=== PATIENT | female | born 1945 | race Caucasian/White ===

== ENCOUNTER → 2017-11-30 | Outpatient (CLI) | payer MEDICARE ==
[~2017-11-30] MED LIST: (None)20 M1 PO; ABILIFY PO; ADVAIR DISKU AER 250 INH; ALBIPROI INH; ALBU.083IS IH; ALBU3IS INH; ALBU90OI6 INH; ALBUTEROL; ASCO500 PO; ASPI325 PO; ASPI81CH PO; ATOR40TA PO; AZIT250 PO; AZIT500 PO; Abilify5 MG PO; BUPR150T2 PO; Budeprion Xl300 MG PO; CEFD300 PO; CHOL10002 PO; CLIN300 PO; CLON.5 PO; CLOP75 PO; CLOTRIMAZOLE MM; COMBIVENT INH; COMBIVENT RESPIM4 GM; COMBIVENT RESPIM4 GM IH; COMBIVENT RESPIM4 GM INH; Cleocin HCl150 MG PO; Cyclobenzaprine5 MG PO; DOXY100 PO; DULERA 200 MCG/13 GM INH; DULO30 PO; DULO60 PO; FLUOROURACIL TOP; FLUSAL2505 IH; FURO20 PO; Ferrous Sulfat325 MG PO; GABA100 PO; GUAI600T33 PO; HYDACE5 PO; HYDR1TAB94 PO; IPRATROPIUM; LEVO750 PO; LISI5 PO; LISINOPRIL PO; LOVA20 PO; LOVA40 PO; Lisinopril2.5 MG PO; Lopressor 25 mg25 MG PO; METO50 PO; METPRE4DP PO; MIRALAX17 GM PO; MONT10T PO; MULTI VITAMIN1 EACH PO; MUPI1NAS; MUPIROCIN TOP; Micro-K10 MEQ PO; NICO21TP TOP; Omega 3 Fish O1 EACH PO; PANT40 PO; POTCHL20ER PO; PRED10 PO; PRED20 PO; PROAIR RESPICL90 MCG INH; PROBIOTIC ACID1 EAC3 PO; SIMV10 PO; SULTRIDS PO; TRELEGY ELLIPT1 EACH INH; TRIA80TC TOP; TRIAMCINOLONE TOP; VANC125 PO; Ventolin Soln3 ML INH; Vibramycin100 MG PO; ZYRTEC10 M2 PO; Zofran Odt4 MG SL; [UNRECOGNIZED DRUG - OTHER] PO
== END ==
LOC: PLD 10:16 → LAB SHORT 10:16
DX: D22.62 Melanocytic nevi of left upper limb, including shoulder (principal); D22.5 Melanocytic nevi of trunk
CPT/HCPCS: 88305

== ENCOUNTER → 2018-04-04 | Outpatient (CLI) | payer MEDICARE ==
[~2018-04-04] MED LIST changes: -(None)20 M1 PO; +ALBU3IS; -ALBU3IS INH; -ASCO500 PO; -ATOR40TA PO; -CEFD300 PO; -COMBIVENT RESPIM4 GM; -COMBIVENT RESPIM4 GM INH; -Cyclobenzaprine5 MG PO; -Ferrous Sulfat325 MG PO; -GUAI600T33 PO; -LOVA40 PO; -Lopressor 25 mg25 MG PO; +Lovastatin20 MG PO; -MIRALAX17 GM PO; -NICO21TP TOP; -PANT40 PO; -PROAIR RESPICL90 MCG INH; -PROBIOTIC ACID1 EAC3 PO; +TRELEGY ELLIPT1 EACH IH; -TRELEGY ELLIPT1 EACH INH
== END | disposition home or self-care (01) ==
LOC: LAB SHORT 13:33 → PLD 13:33
DX: D48.5 Neoplasm of uncertain behavior of skin (principal)
CPT/HCPCS: 88305

== ENCOUNTER 2018-04-12 15:13 | Emergency (ER) | payer MEDICARE ==
[~2018-04-12] VITALS: Ht 167.6 cm; Wt 64.0 kg
[~2018-04-12 15:13] MED LIST changes: -TRELEGY ELLIPT1 EACH IH
[2018-04-12] MEDS ORDERED: TRELEGY ELLIPT1 EACH IH (15:29)
[2018-04-12 15:44] LABS: BASOPHILS ABSOLUTE AUTO 0.02 K/mm3 (0.00-0.23); BASOPHILS PERCENT AUTO 0 % (0-2); EOSINOPHILS ABSOLUTE AUTO 0.13 K/mm3 (0.00-0.68); EOSINOPHILS PERCENT AUTO 2 % (0-6); Hematocrit 32.9 % (33.0-51.0); Hemoglobin 9.9 g/dL (11.5-16.0); IMMATURE GRAN ABSOLUTE AUTO 0.03 K/mm3 (0.00-0.10); IMMATURE GRAN PERCENT AUTO 0 % (0-1); LYMPHOCYTES ABSOLUTE AUTO 0.83 K/mm3 (0.84-5.20); LYMPHOCYTES PERCENT AUTO 9 % (21-46); MONOCYTES ABSOLUTE AUTO 0.69 K/mm3 (0.16-1.47); MONOCYTES PERCENT AUTO 8 % (4-13); Mean Corpuscular HGB 29.3 pg (26.0-34.0); Mean Corpuscular HGB Conc 30.1 g/dL (31.5-36.5); Mean Corpuscular Volume 97 fL (80-100); Mean Platelet Volume 9.2 fL (9.1-12.4); NEUTROPHILS ABSOLUTE AUTO 7.11 K/mm3 (1.96-9.15); NEUTROPHILS PERCENT AUTO 81 % (41-73); Platelet Count 207 K/mm3 (150-400); RDW Coefficient Variation 15.1 % (11.7-14.2); RDW Standard Deviation 54.1 fL (35.1-46.3); Red Blood Cell Count 3.38 M/mm3 (3.80-5.20); White Blood Cell Count 8.81 K/mm3 (4.00-11.30)
[2018-04-12 15:58] LABS: Alanine Aminotransfer (ALT/SGP 14 U/L (12-78); Albumin, Blood 2.7 g/dL (3.4-5.0); Albumin/Globulin Ratio 0.7 (0.8-1.8); Alk Phos 87 U/L (50-136); Anion Gap 4 mmol/L (6-16); Aspartate Aminotrans (AST/SGOT 17 U/L (12-37); Bilirubin, Total 0.2 mg/dL (0.1-1.0); Blood Urea Nitrogen 18 mg/dL (8-24); CO2, Blood 35 mmol/L (21-32); Calcium, Blood 8.7 mg/dL (8.5-10.1); Chloride, Blood 99 mmol/L (98-108); Creatinine, Blood 0.69 mg/dL (0.40-1.00); Globulin, Blood 3.9 g/dL (2.2-4.0); Glomerular Filtration Rate >60 (60-); Glucose, Blood 90 mg/dL (70-99); Potassium, Blood 4.4 mmol/L (3.5-5.5); Sodium, Blood 138 mmol/L (136-145); Total Protein, Blood 6.6 g/dL (6.4-8.2); Troponin I <0.015 ng/mL (0.000-0.040)
== END 2018-04-12 19:48 | disposition home or self-care (01) ==
LOC: ER 15:13
PROVIDERS: Internal Medicine
DX: R07.89 Other chest pain (principal); Z88.0 Allergy status to penicillin; Z79.899 Other long term (current) drug therapy; Z79.2 Long term (current) use of antibiotics; Z79.82 Long term (current) use of aspirin; J44.9 Chronic obstructive pulmonary disease, unspecified; E78.5 Hyperlipidemia, unspecified; I10 Essential (primary) hypertension; Z87.891 Personal history of nicotine dependence
CPT/HCPCS: 36415; 71046; 80053; 83880; 84484; 85025; 85379; 93005; 93010; 99283

== ENCOUNTER 2018-04-21 14:35 | Inpatient (IN) | payer MEDICARE ==
[~2018-04-21] VITALS: Ht 165.1 cm; Wt 69.0 kg
[~2018-04-21 14:35] MED LIST changes: -ALBU3IS; +ALBU3IS INH; +TRELEGY ELLIPT1 EACH INH
[2018-04-21 15:11] LABS: BASOPHILS ABSOLUTE AUTO 0.01 K/mm3 (0.00-0.23); BASOPHILS PERCENT AUTO 0 % (0-2); EOSINOPHILS ABSOLUTE AUTO 0.12 K/mm3 (0.00-0.68); EOSINOPHILS PERCENT AUTO 1 % (0-6); Hematocrit 33.1 % (33.0-51.0); Hemoglobin 9.7 g/dL (11.5-16.0); IMMATURE GRAN ABSOLUTE AUTO 0.06 K/mm3 (0.00-0.10); IMMATURE GRAN PERCENT AUTO 1 % (0-1); LYMPHOCYTES ABSOLUTE AUTO 0.88 K/mm3 (0.84-5.20); LYMPHOCYTES PERCENT AUTO 10 % (21-46); MONOCYTES ABSOLUTE AUTO 0.62 K/mm3 (0.16-1.47); MONOCYTES PERCENT AUTO 7 % (4-13); Mean Corpuscular HGB 28.6 pg (26.0-34.0); Mean Corpuscular HGB Conc 29.3 g/dL (31.5-36.5); Mean Corpuscular Volume 98 fL (80-100); Mean Platelet Volume 9.4 fL (9.1-12.4); NEUTROPHILS ABSOLUTE AUTO 7.04 K/mm3 (1.96-9.15); NEUTROPHILS PERCENT AUTO 81 % (41-73); Platelet Count 256 K/mm3 (150-400); RDW Coefficient Variation 14.8 % (11.7-14.2); RDW Standard Deviation 53.1 fL (35.1-46.3); Red Blood Cell Count 3.39 M/mm3 (3.80-5.20); White Blood Cell Count 8.73 K/mm3 (4.00-11.30)
[2018-04-21 15:14] LABS: PCO2 Arterial 79.9 mmHg (35-45); PO2 Arterial 58.5 mmHg (80-100); pH Blood Arterial 7.29 (7.35-7.45)
[2018-04-21 15:34] LABS: Alanine Aminotransfer (ALT/SGP 15 U/L (12-78); Albumin/Globulin Ratio 0.8 (0.8-1.8); Alk Phos 94 U/L (50-136); Anion Gap 3 mmol/L (6-16); Aspartate Aminotrans (AST/SGOT 19 U/L (12-37); Bilirubin, Total 0.2 mg/dL (0.1-1.0); Blood Urea Nitrogen 14 mg/dL (8-24); Bun/Creatinine Ratio 20.4 (12.0-20.0); CO2, Blood 37 mmol/L (21-32); Calcium, Blood 8.5 mg/dL (8.5-10.1); Chloride, Blood 95 mmol/L (98-108); Creatinine, Blood 0.69 mg/dL (0.40-1.00); Glomerular Filtration Rate >60 (60-); Glucose, Blood 89 mg/dL (70-99); Potassium, Blood 4.5 mmol/L (3.5-5.5); Sodium, Blood 135 mmol/L (136-145); Troponin I <0.015 ng/mL (0.000-0.040)
[2018-04-21 22:24] LABS: PCO2 Arterial 86.3 mmHg (35-45); PO2 Arterial 85.9 mmHg (80-100)
[2018-04-22 03:47] LABS: Hematocrit 31.6 % (33.0-51.0); Hemoglobin 9.3 g/dL (11.5-16.0); Mean Corpuscular HGB 27.8 pg (26.0-34.0); Mean Corpuscular HGB Conc 29.4 g/dL (31.5-36.5); Mean Platelet Volume 9.5 fL (9.1-12.4); Platelet Count 245 K/mm3 (150-400); RDW Coefficient Variation 14.9 % (11.7-14.2); RDW Standard Deviation 51.8 fL (35.1-46.3); Red Blood Cell Count 3.34 M/mm3 (3.80-5.20); White Blood Cell Count 5.57 K/mm3 (4.00-11.30)
[2018-04-22 03:56] LABS: Mean Corpuscular Volume 95 fL (80-100)
[2018-04-22 04:07] LABS: Anion Gap 4 mmol/L (6-16); Blood Urea Nitrogen 16 mg/dL (8-24); Bun/Creatinine Ratio 25.2 (12.0-20.0); CO2, Blood 39 mmol/L (21-32); Calcium, Blood 8.6 mg/dL (8.5-10.1); Chloride, Blood 95 mmol/L (98-108); Creatinine, Blood 0.63 mg/dL (0.40-1.00); Glomerular Filtration Rate >60 (60-); Glucose, Blood 182 mg/dL (70-99); Potassium, Blood 4.3 mmol/L (3.5-5.5); Sodium, Blood 138 mmol/L (136-145)
[2018-04-22 05:10] LABS: PO2 Arterial 61.9 mmHg (80-100); pH Blood Arterial 7.35 (7.35-7.45)
[2018-04-23 03:54] LABS: BASOPHILS ABSOLUTE AUTO 0.01 K/mm3 (0.00-0.23); BASOPHILS PERCENT AUTO 0 % (0-2); EOSINOPHILS PERCENT AUTO 0 % (0-6); Hematocrit 32.6 % (33.0-51.0); Hemoglobin 9.9 g/dL (11.5-16.0); IMMATURE GRAN ABSOLUTE AUTO 0.05 K/mm3 (0.00-0.10); IMMATURE GRAN PERCENT AUTO 0 % (0-1); LYMPHOCYTES ABSOLUTE AUTO 0.36 K/mm3 (0.84-5.20); LYMPHOCYTES PERCENT AUTO 3 % (21-46); MONOCYTES ABSOLUTE AUTO 0.24 K/mm3 (0.16-1.47); MONOCYTES PERCENT AUTO 2 % (4-13); Mean Corpuscular HGB 28.1 pg (26.0-34.0); Mean Corpuscular HGB Conc 30.4 g/dL (31.5-36.5); Mean Corpuscular Volume 93 fL (80-100); Mean Platelet Volume 9.7 fL (9.1-12.4); NEUTROPHILS ABSOLUTE AUTO 13.39 K/mm3 (1.96-9.15); NEUTROPHILS PERCENT AUTO 95 % (41-73); Platelet Count 288 K/mm3 (150-400); RDW Coefficient Variation 14.9 % (11.7-14.2); RDW Standard Deviation 50.6 fL (35.1-46.3); Red Blood Cell Count 3.52 M/mm3 (3.80-5.20); White Blood Cell Count 14.05 K/mm3 (4.00-11.30)
[2018-04-23 04:32] LABS: Alanine Aminotransfer (ALT/SGP 13 U/L (12-78); Albumin, Blood 2.7 g/dL (3.4-5.0); Albumin/Globulin Ratio 0.7 (0.8-1.8); Alk Phos 85 U/L (50-136); Anion Gap 5 mmol/L (6-16); Aspartate Aminotrans (AST/SGOT 13 U/L (12-37); Bilirubin, Total 0.4 mg/dL (0.1-1.0); Blood Urea Nitrogen 23 mg/dL (8-24); Bun/Creatinine Ratio 37.2 (12.0-20.0); CO2, Blood 37 mmol/L (21-32); Chloride, Blood 95 mmol/L (98-108); Creatinine, Blood 0.62 mg/dL (0.40-1.00); Globulin, Blood 4.1 g/dL (2.2-4.0); Glomerular Filtration Rate >60 (60-); Glucose, Blood 158 mg/dL (70-99); Potassium, Blood 4.2 mmol/L (3.5-5.5); Sodium, Blood 137 mmol/L (136-145); Thyroid Stimulating Hormone 0.079 uIU/mL (0.360-4.800); Total Protein, Blood 6.8 g/dL (6.4-8.2)
[2018-04-24 04:17] LABS: BASOPHILS ABSOLUTE AUTO 0.01 K/mm3 (0.00-0.23); BASOPHILS PERCENT AUTO 0 % (0-2); EOSINOPHILS PERCENT AUTO 0 % (0-6); Hematocrit 34.5 % (33.0-51.0); Hemoglobin 10.3 g/dL (11.5-16.0); IMMATURE GRAN ABSOLUTE AUTO 0.11 K/mm3 (0.00-0.10); IMMATURE GRAN PERCENT AUTO 1 % (0-1); LYMPHOCYTES ABSOLUTE AUTO 0.34 K/mm3 (0.84-5.20); LYMPHOCYTES PERCENT AUTO 2 % (21-46); MONOCYTES ABSOLUTE AUTO 0.42 K/mm3 (0.16-1.47); MONOCYTES PERCENT AUTO 3 % (4-13); Mean Corpuscular HGB 28.2 pg (26.0-34.0); Mean Corpuscular HGB Conc 29.9 g/dL (31.5-36.5); Mean Corpuscular Volume 95 fL (80-100); Mean Platelet Volume 9.4 fL (9.1-12.4); NEUTROPHILS ABSOLUTE AUTO 16.03 K/mm3 (1.96-9.15); NEUTROPHILS PERCENT AUTO 95 % (41-73); Platelet Count 315 K/mm3 (150-400); RDW Coefficient Variation 14.9 % (11.7-14.2); RDW Standard Deviation 52.2 fL (35.1-46.3); Red Blood Cell Count 3.65 M/mm3 (3.80-5.20); White Blood Cell Count 16.91 K/mm3 (4.00-11.30)
[2018-04-24 04:49] LABS: Alanine Aminotransfer (ALT/SGP 16 U/L (12-78); Albumin, Blood 2.8 g/dL (3.4-5.0); Albumin/Globulin Ratio 0.7 (0.8-1.8); Alk Phos 91 U/L (50-136); Anion Gap 4 mmol/L (6-16); Aspartate Aminotrans (AST/SGOT 16 U/L (12-37); Bilirubin, Total 0.3 mg/dL (0.1-1.0); Blood Urea Nitrogen 27 mg/dL (8-24); Bun/Creatinine Ratio 40.1 (12.0-20.0); CO2, Blood 35 mmol/L (21-32); Calcium, Blood 8.9 mg/dL (8.5-10.1); Chloride, Blood 100 mmol/L (98-108); Creatinine, Blood 0.67 mg/dL (0.40-1.00); Globulin, Blood 3.9 g/dL (2.2-4.0); Glomerular Filtration Rate >60 (60-); Glucose, Blood 140 mg/dL (70-99); Potassium, Blood 4.1 mmol/L (3.5-5.5); Sodium, Blood 139 mmol/L (136-145); Total Protein, Blood 6.7 g/dL (6.4-8.2)
[2018-04-25 05:06] LABS: BASOPHILS ABSOLUTE AUTO 0.01 K/mm3 (0.00-0.23); BASOPHILS PERCENT AUTO 0 % (0-2); EOSINOPHILS PERCENT AUTO 0 % (0-6); Hematocrit 35.8 % (33.0-51.0); Hemoglobin 10.7 g/dL (11.5-16.0); IMMATURE GRAN ABSOLUTE AUTO 0.11 K/mm3 (0.00-0.10); IMMATURE GRAN PERCENT AUTO 1 % (0-1); LYMPHOCYTES ABSOLUTE AUTO 0.74 K/mm3 (0.84-5.20); LYMPHOCYTES PERCENT AUTO 5 % (21-46); MONOCYTES ABSOLUTE AUTO 0.95 K/mm3 (0.16-1.47); MONOCYTES PERCENT AUTO 7 % (4-13); Mean Corpuscular HGB Conc 29.9 g/dL (31.5-36.5); Mean Corpuscular Volume 94 fL (80-100); Mean Platelet Volume 9.3 fL (9.1-12.4); NEUTROPHILS ABSOLUTE AUTO 12.88 K/mm3 (1.96-9.15); NEUTROPHILS PERCENT AUTO 88 % (41-73); Platelet Count 325 K/mm3 (150-400); RDW Coefficient Variation 14.9 % (11.7-14.2); RDW Standard Deviation 51.8 fL (35.1-46.3); Red Blood Cell Count 3.82 M/mm3 (3.80-5.20); White Blood Cell Count 14.69 K/mm3 (4.00-11.30)
[2018-04-25 05:29] LABS: Alanine Aminotransfer (ALT/SGP 28 U/L (12-78); Albumin, Blood 2.8 g/dL (3.4-5.0); Albumin/Globulin Ratio 0.7 (0.8-1.8); Alk Phos 78 U/L (50-136); Anion Gap 5 mmol/L (6-16); Aspartate Aminotrans (AST/SGOT 27 U/L (12-37); Bilirubin, Total 0.4 mg/dL (0.1-1.0); Blood Urea Nitrogen 25 mg/dL (8-24); Bun/Creatinine Ratio 37.4 (12.0-20.0); CO2, Blood 36 mmol/L (21-32); Calcium, Blood 8.6 mg/dL (8.5-10.1); Chloride, Blood 98 mmol/L (98-108); Creatinine, Blood 0.67 mg/dL (0.40-1.00); Globulin, Blood 3.8 g/dL (2.2-4.0); Glomerular Filtration Rate >60 (60-); Glucose, Blood 78 mg/dL (70-99); Potassium, Blood 4.1 mmol/L (3.5-5.5); Sodium, Blood 139 mmol/L (136-145); Total Protein, Blood 6.6 g/dL (6.4-8.2)
[2018-04-26 05:20] LABS: BASOPHILS ABSOLUTE AUTO 0.01 K/mm3 (0.00-0.23); BASOPHILS PERCENT AUTO 0 % (0-2); EOSINOPHILS ABSOLUTE AUTO 0.02 K/mm3 (0.00-0.68); EOSINOPHILS PERCENT AUTO 0 % (0-6); Hematocrit 36.5 % (33.0-51.0); Hemoglobin 10.9 g/dL (11.5-16.0); IMMATURE GRAN PERCENT AUTO 1 % (0-1); LYMPHOCYTES ABSOLUTE AUTO 1.24 K/mm3 (0.84-5.20); LYMPHOCYTES PERCENT AUTO 10 % (21-46); MONOCYTES ABSOLUTE AUTO 1.02 K/mm3 (0.16-1.47); MONOCYTES PERCENT AUTO 8 % (4-13); Mean Corpuscular HGB 27.9 pg (26.0-34.0); Mean Corpuscular HGB Conc 29.9 g/dL (31.5-36.5); Mean Corpuscular Volume 94 fL (80-100); Mean Platelet Volume 9.3 fL (9.1-12.4); NEUTROPHILS ABSOLUTE AUTO 10.02 K/mm3 (1.96-9.15); NEUTROPHILS PERCENT AUTO 81 % (41-73); Platelet Count 303 K/mm3 (150-400); RDW Coefficient Variation 14.7 % (11.7-14.2); RDW Standard Deviation 50.8 fL (35.1-46.3); White Blood Cell Count 12.41 K/mm3 (4.00-11.30)
[2018-04-26 05:48] LABS: Alanine Aminotransfer (ALT/SGP 66 U/L (12-78); Albumin, Blood 2.7 g/dL (3.4-5.0); Albumin/Globulin Ratio 0.8 (0.8-1.8); Alk Phos 89 U/L (50-136); Anion Gap 6 mmol/L (6-16); Aspartate Aminotrans (AST/SGOT 35 U/L (12-37); Bilirubin, Total 0.4 mg/dL (0.1-1.0); Blood Urea Nitrogen 25 mg/dL (8-24); Bun/Creatinine Ratio 33.6 (12.0-20.0); CO2, Blood 34 mmol/L (21-32); Calcium, Blood 8.8 mg/dL (8.5-10.1); Chloride, Blood 99 mmol/L (98-108); Creatinine, Blood 0.74 mg/dL (0.40-1.00); Globulin, Blood 3.6 g/dL (2.2-4.0); Glomerular Filtration Rate >60 (60-); Glucose, Blood 86 mg/dL (70-99); Potassium, Blood 4.1 mmol/L (3.5-5.5); Sodium, Blood 139 mmol/L (136-145); Total Protein, Blood 6.3 g/dL (6.4-8.2)
[2018-04-26] MEDS ORDERED: MIRALAX17 GM PO (12:10)
[2018-04-26] MEDS ORDERED: COMBIVENT RESPIM4 GM INH (12:12)
[2018-04-26] MEDS ORDERED: GUAI600T33 PO (12:14)
[2018-04-26] MEDS ORDERED: NICO21TP TOP (12:14)
[2018-04-26] MEDS ORDERED: (None)20 M1 PO (12:15)
[2018-04-26] MEDS ORDERED: CEFD300 PO (12:16)
== END 2018-04-26 14:23 | disposition home or self-care (01) | DRG 189 ==
LOC: ER 14:35 → PCU 20:16 → MEDS 20:16 → PCU 22:38 → MEDS 04-24 11:29 → ENPENDDIS 04-25 10:30 → EDPENDDISTM 04-26 10:46 → EDPENDDISDT 04-26 10:46 → MEDS 04-26 14:23
PROVIDERS: Emergency Medicine; Internal Medicine; Nurse Practitioner Acute Care; Physician Assistant
PROC: 5A09357 Assistance with Respiratory Ventilation, Less than 24 Consecutive Hours, Continuous Positive Airway Pressure (ICD-10-PCS; principal; 2018-04-22)
DX: J96.21 Acute and chronic respiratory failure with hypoxia (principal); J44.1 Chronic obstructive pulmonary disease with (acute) exacerbation; J96.22 Acute and chronic respiratory failure with hypercapnia; Z99.81 Dependence on supplemental oxygen; I10 Essential (primary) hypertension; I73.9 Peripheral vascular disease, unspecified; E78.5 Hyperlipidemia, unspecified; Z85.828 Personal history of other malignant neoplasm of skin; F17.210 Nicotine dependence, cigarettes, uncomplicated; F41.9 Anxiety disorder, unspecified; D72.829 Elevated white blood cell count, unspecified
CPT/HCPCS: 36415; 36600; 71046; 71260; 80048; 80053; 82803; 83605; 83880; 84443; 84484; 85025; 85027; 87040; 93005; 93010; 94640; 94644; 94660; 94760; 94762; 96365; 96375; 99285; J0456; J1650; J1940; J2930; J7050; Q9967

== ENCOUNTER 2018-06-30 15:30 | Inpatient (IN) | payer MEDICARE ==
[~2018-06-30] VITALS: Ht 167.6 cm; Wt 63.1 kg
[~2018-06-30 15:30] MED LIST changes: +(None)20 M1 PO; +CEFD300 PO; +COMBIVENT RESPIM4 GM INH; +GUAI600T33 PO; +MIRALAX17 GM PO; +NICO21TP TOP
[2018-06-30 16:11] LABS: BASOPHILS ABSOLUTE AUTO 0.03 K/mm3 (0.00-0.23); BASOPHILS PERCENT AUTO 0 % (0-2); EOSINOPHILS ABSOLUTE AUTO 0.18 K/mm3 (0.00-0.68); EOSINOPHILS PERCENT AUTO 2 % (0-6); Hematocrit 33.5 % (33.0-51.0); Hemoglobin 9.8 g/dL (11.5-16.0); IMMATURE GRAN ABSOLUTE AUTO 0.01 K/mm3 (0.00-0.10); IMMATURE GRAN PERCENT AUTO 0 % (0-1); LYMPHOCYTES ABSOLUTE AUTO 1.02 K/mm3 (0.84-5.20); LYMPHOCYTES PERCENT AUTO 11 % (21-46); MONOCYTES ABSOLUTE AUTO 0.69 K/mm3 (0.16-1.47); MONOCYTES PERCENT AUTO 7 % (4-13); Mean Corpuscular HGB 28.4 pg (26.0-34.0); Mean Corpuscular HGB Conc 29.3 g/dL (31.5-36.5); Mean Corpuscular Volume 97 fL (80-100); NEUTROPHILS ABSOLUTE AUTO 7.42 K/mm3 (1.96-9.15); NEUTROPHILS PERCENT AUTO 79 % (41-73); Platelet Count 259 K/mm3 (150-400); RDW Coefficient Variation 14.4 % (11.7-14.2); RDW Standard Deviation 50.9 fL (35.1-46.3); Red Blood Cell Count 3.45 M/mm3 (3.80-5.20); White Blood Cell Count 9.35 K/mm3 (4.00-11.30)
[2018-06-30 16:35] LABS: Alanine Aminotransfer (ALT/SGP 16 U/L (12-78); Albumin, Blood 3.1 g/dL (3.4-5.0); Albumin/Globulin Ratio 0.7 (0.8-1.8); Alk Phos 88 U/L (50-136); Anion Gap 3 mmol/L (6-16); Aspartate Aminotrans (AST/SGOT 18 U/L (12-37); Bilirubin, Total 0.1 mg/dL (0.1-1.0); Blood Urea Nitrogen 18 mg/dL (8-24); Bun/Creatinine Ratio 24.5 (12.0-20.0); CO2, Blood 39 mmol/L (21-32); Calcium, Blood 9.2 mg/dL (8.5-10.1); Chloride, Blood 98 mmol/L (98-108); Creatinine, Blood 0.74 mg/dL (0.40-1.00); Globulin, Blood 4.2 g/dL (2.2-4.0); Glomerular Filtration Rate >60 (60-); Glucose, Blood 95 mg/dL (70-99); Potassium, Blood 3.9 mmol/L (3.5-5.5); Sodium, Blood 140 mmol/L (136-145); Total Protein, Blood 7.3 g/dL (6.4-8.2); Troponin I <0.015 ng/mL (0.000-0.040)
[2018-06-30 18:00] LABS: PCO2 Arterial 88.5 mmHg (35-45); PO2 Arterial 64.2 mmHg (80-100); pH Blood Arterial 7.27 (7.35-7.45)
[2018-07-01 04:36] LABS: PCO2 Arterial 72.4 mmHg (35-45); PO2 Arterial 51.4 mmHg (80-100); pH Blood Arterial 7.34 (7.35-7.45)
[2018-07-01 05:00] LABS: BASOPHILS PERCENT AUTO 0 % (0-2); EOSINOPHILS PERCENT AUTO 0 % (0-6); Hematocrit 32.4 % (33.0-51.0); Hemoglobin 9.2 g/dL (11.5-16.0); IMMATURE GRAN ABSOLUTE AUTO 0.02 K/mm3 (0.00-0.10); IMMATURE GRAN PERCENT AUTO 0 % (0-1); LYMPHOCYTES ABSOLUTE AUTO 0.27 K/mm3 (0.84-5.20); LYMPHOCYTES PERCENT AUTO 4 % (21-46); MONOCYTES ABSOLUTE AUTO 0.03 K/mm3 (0.16-1.47); MONOCYTES PERCENT AUTO 1 % (4-13); Mean Corpuscular HGB 27.8 pg (26.0-34.0); Mean Corpuscular HGB Conc 28.4 g/dL (31.5-36.5); Mean Corpuscular Volume 98 fL (80-100); Mean Platelet Volume 10.3 fL (9.1-12.4); NEUTROPHILS ABSOLUTE AUTO 5.96 K/mm3 (1.96-9.15); NEUTROPHILS PERCENT AUTO 95 % (41-73); Platelet Count 230 K/mm3 (150-400); RDW Coefficient Variation 14.1 % (11.7-14.2); RDW Standard Deviation 50.6 fL (35.1-46.3); Red Blood Cell Count 3.31 M/mm3 (3.80-5.20); White Blood Cell Count 6.28 K/mm3 (4.00-11.30)
[2018-07-02 04:47] LABS: Base Excess Venous 14.6 mmol/L; Bicarbonate Venous 36.3 mmol/L (24.0-30.0); PCO2 Venous 60.3 mmHg (38-42); PO2 Venous 57.1 mmHg (38-42); pH Blood Venous 7.42 (7.34-7.37)
[2018-07-03] MEDS ORDERED: ALBU3IS INH (09:06)
[2018-07-03] MEDS ORDERED: PROAIR RESPICL90 MCG INH (09:07)
[2018-07-03] MEDS ORDERED: PRED20 PO (09:08)
== END 2018-07-03 16:23 | disposition home or self-care (01) | DRG 189 ==
LOC: ER 15:30 → PCU 18:39 → SURS 19:53 → PCU 20:07 → SURS 07-01 14:54
PROVIDERS: Hospitalist; Internal Medicine; Physician Assistant
DX: J96.21 Acute and chronic respiratory failure with hypoxia (principal); J44.1 Chronic obstructive pulmonary disease with (acute) exacerbation; C34.90 Malignant neoplasm of unspecified part of unspecified bronchus or lung; J96.22 Acute and chronic respiratory failure with hypercapnia; Z99.81 Dependence on supplemental oxygen; I73.9 Peripheral vascular disease, unspecified; E78.5 Hyperlipidemia, unspecified; I10 Essential (primary) hypertension; Z87.891 Personal history of nicotine dependence; D64.89 Other specified anemias; F32.9 Major depressive disorder, single episode, unspecified
CPT/HCPCS: 36415; 36600; 71046; 71250; 80053; 82803; 84145; 84484; 85025; 93005; 93010; 94640; 94644; 94660; 94762; 96365; 96366; 96375; 99285-25; J1650; J2930; J3475; J7030

== ENCOUNTER 2018-09-11 18:18 | Inpatient (IN) | payer MEDICARE ==
[~2018-09-11] VITALS: Ht 167.6 cm; Wt 68.3 kg
[~2018-09-11 18:18] MED LIST changes: +COMBIVENT RESPIM4 GM; +Cyclobenzaprine5 MG PO; +LOVA40 PO; +Lopressor 25 mg25 MG PO; -Lovastatin20 MG PO; +PROAIR RESPICL90 MCG INH; +PROBIOTIC ACID1 EAC3 PO
[2018-09-11 18:53] LABS: BASOPHILS ABSOLUTE AUTO 0.03 K/mm3 (0.00-0.23); BASOPHILS PERCENT AUTO 0 % (0-2); EOSINOPHILS ABSOLUTE AUTO 0.18 K/mm3 (0.00-0.68); EOSINOPHILS PERCENT AUTO 2 % (0-6); Hematocrit 38.1 % (33.0-51.0); Hemoglobin 10.7 g/dL (11.5-16.0); IMMATURE GRAN ABSOLUTE AUTO 0.02 K/mm3 (0.00-0.10); IMMATURE GRAN PERCENT AUTO 0 % (0-1); LYMPHOCYTES ABSOLUTE AUTO 0.73 K/mm3 (0.84-5.20); LYMPHOCYTES PERCENT AUTO 7 % (21-46); MONOCYTES ABSOLUTE AUTO 0.84 K/mm3 (0.16-1.47); MONOCYTES PERCENT AUTO 8 % (4-13); Mean Corpuscular HGB 27.6 pg (26.0-34.0); Mean Corpuscular HGB Conc 28.1 g/dL (31.5-36.5); Mean Corpuscular Volume 98 fL (80-100); Mean Platelet Volume 9.3 fL (9.1-12.4); NEUTROPHILS ABSOLUTE AUTO 8.46 K/mm3 (1.96-9.15); NEUTROPHILS PERCENT AUTO 82 % (41-73); Platelet Count 299 K/mm3 (150-400); RDW Coefficient Variation 14.6 % (11.7-14.2); RDW Standard Deviation 52.9 fL (35.1-46.3); Red Blood Cell Count 3.88 M/mm3 (3.80-5.20); White Blood Cell Count 10.26 K/mm3 (4.00-11.30)
[2018-09-11 19:11] LABS: Alanine Aminotransfer (ALT/SGP 22 U/L (12-78); Albumin, Blood 3.5 g/dL (3.4-5.0); Albumin/Globulin Ratio 0.8 (0.8-1.8); Alk Phos 91 U/L (50-136); Anion Gap 6 mmol/L (6-16); Aspartate Aminotrans (AST/SGOT 28 U/L (12-37); Bilirubin, Total 0.3 mg/dL (0.1-1.0); Blood Urea Nitrogen 19 mg/dL (8-24); Bun/Creatinine Ratio 20.1 (12.0-20.0); CO2, Blood 39 mmol/L (21-32); Calcium, Blood 9.5 mg/dL (8.5-10.1); Chloride, Blood 94 mmol/L (98-108); Creatinine, Blood 0.95 mg/dL (0.40-1.00); Ethanol (Alcohol), Blood, Med <3 mg/dL; Globulin, Blood 4.4 g/dL (2.2-4.0); Glomerular Filtration Rate >60 (60-); Glucose, Blood 104 mg/dL (70-99); Potassium, Blood 4.4 mmol/L (3.5-5.5); Sodium, Blood 139 mmol/L (136-145); Total Protein, Blood 7.9 g/dL (6.4-8.2); Troponin I <0.015 ng/mL (0.000-0.040)
[2018-09-11 19:59] LABS: PO2 Arterial 390 mmHg (80-100); pH Blood Arterial 7.42 (7.35-7.45)
[2018-09-11 20:12] LABS: Source, Urine Clean Catch
[2018-09-11 20:18] LABS: Bilirubin, Urine Neg (Neg); Blood, Urine Neg (Neg); Glucose Qualitative, Urine Neg (Neg); Ketones, Urine Neg (Neg); Leukocyte Esterase, Urine Neg (Neg); Nitrite, Urine Neg (Neg); Protein, Urine 1+ (Neg); Urobilinogen, Urine NORM (Normal)
[2018-09-11 20:25] LABS: Color, Urine Yellow (P-Yellow)
[2018-09-11 20:27] LABS: Appearance, Urine Clear (Clear)
[2018-09-11 20:37] LABS: U Amphetamine Screen Not Detected; U Barbituate Screen Not Detected; U Benzodiazapine Screen Not Detected; U Buprenorphine Screen Not Detected; U Cannabinoids Screen Not Detected; U Cocaine Screen Not Detected; U Methadone Screen Not Detected; U Methamphetamine Screen Not Detected; U Opiates Screen DETECTED; U Oxycodone Screen Not Detected; U Phencyclidine Screen Not Detected; U Propoxyphene Screen Not Detected
[2018-09-11 22:59] LABS: PO2 Arterial 65.3 mmHg (80-100); pH Blood Arterial 7.36 (7.35-7.45)
[2018-09-11 23:00] LABS: PCO2 Arterial 71.6 mmHg (35-45)
[2018-09-12 00:59] LABS: PCO2 Arterial 58.9 mmHg (35-45); PO2 Arterial 66.1 mmHg (80-100); pH Blood Arterial 7.44 (7.35-7.45)
[2018-09-12] MEDS ORDERED: Cyclobenzaprine5 MG PO (04:44)
[2018-09-12] MEDS ORDERED: HYDR1TAB94 PO (04:46)
[2018-09-12 05:51] LABS: PCO2 Arterial 53.8 mmHg (35-45); PO2 Arterial 72.1 mmHg (80-100); pH Blood Arterial 7.44 (7.35-7.45)
[2018-09-12 07:42] LABS: Hemoglobin 8.1 g/dL (11.5-16.0); Mean Corpuscular HGB 28.1 pg (26.0-34.0); Mean Corpuscular HGB Conc 28.9 g/dL (31.5-36.5); Mean Corpuscular Volume 97 fL (80-100); Mean Platelet Volume 9.9 fL (9.1-12.4); Platelet Count 220 K/mm3 (150-400); RDW Coefficient Variation 14.9 % (11.7-14.2); RDW Standard Deviation 53.1 fL (35.1-46.3); Red Blood Cell Count 2.88 M/mm3 (3.80-5.20); White Blood Cell Count 6.22 K/mm3 (4.00-11.30)
[2018-09-12 08:13] LABS: Alanine Aminotransfer (ALT/SGP 17 U/L (12-78); Albumin, Blood 2.4 g/dL (3.4-5.0); Albumin/Globulin Ratio 0.8 (0.8-1.8); Alk Phos 64 U/L (50-136); Anion Gap 8 mmol/L (6-16); Aspartate Aminotrans (AST/SGOT 21 U/L (12-37); Bilirubin, Total 0.5 mg/dL (0.1-1.0); Blood Urea Nitrogen 18 mg/dL (8-24); Bun/Creatinine Ratio 26.7 (12.0-20.0); CO2, Blood 33 mmol/L (21-32); Calcium, Blood 8.1 mg/dL (8.5-10.1); Chloride, Blood 100 mmol/L (98-108); Creatinine, Blood 0.67 mg/dL (0.40-1.00); Globulin, Blood 3.2 g/dL (2.2-4.0); Glomerular Filtration Rate >60 (60-); Glucose, Blood 111 mg/dL (70-99); Potassium, Blood 3.9 mmol/L (3.5-5.5); Sodium, Blood 141 mmol/L (136-145); Total Protein, Blood 5.6 g/dL (6.4-8.2)
[2018-09-13 04:10] LABS: BASOPHILS PERCENT AUTO 0 % (0-2); EOSINOPHILS PERCENT AUTO 0 % (0-6); Hematocrit 27.2 % (33.0-51.0); Hemoglobin 7.9 g/dL (11.5-16.0); IMMATURE GRAN ABSOLUTE AUTO 0.06 K/mm3 (0.00-0.10); IMMATURE GRAN PERCENT AUTO 1 % (0-1); LYMPHOCYTES ABSOLUTE AUTO 0.33 K/mm3 (0.84-5.20); LYMPHOCYTES PERCENT AUTO 3 % (21-46); MONOCYTES ABSOLUTE AUTO 0.21 K/mm3 (0.16-1.47); MONOCYTES PERCENT AUTO 2 % (4-13); Mean Corpuscular HGB 27.5 pg (26.0-34.0); Mean Corpuscular Volume 95 fL (80-100); Mean Platelet Volume 9.9 fL (9.1-12.4); NEUTROPHILS ABSOLUTE AUTO 10.47 K/mm3 (1.96-9.15); NEUTROPHILS PERCENT AUTO 95 % (41-73); Platelet Count 258 K/mm3 (150-400); RDW Coefficient Variation 15.6 % (11.7-14.2); RDW Standard Deviation 53.1 fL (35.1-46.3); Red Blood Cell Count 2.87 M/mm3 (3.80-5.20); White Blood Cell Count 11.07 K/mm3 (4.00-11.30)
[2018-09-13 04:25] LABS: Anion Gap 9 mmol/L (6-16); Blood Urea Nitrogen 17 mg/dL (8-24); Bun/Creatinine Ratio 30.9 (12.0-20.0); CO2, Blood 30 mmol/L (21-32); Chloride, Blood 100 mmol/L (98-108); Creatinine, Blood 0.55 mg/dL (0.40-1.00); Glomerular Filtration Rate >60 (60-); Glucose, Blood 142 mg/dL (70-99); Potassium, Blood 3.3 mmol/L (3.5-5.5); Sodium, Blood 139 mmol/L (136-145)
[2018-09-13 04:54] LABS: PCO2 Arterial 53.9 mmHg (35-45); PO2 Arterial 71.2 mmHg (80-100); pH Blood Arterial 7.41 (7.35-7.45)
[2018-09-14 05:19] LABS: BASOPHILS ABSOLUTE AUTO 0.02 K/mm3 (0.00-0.23); BASOPHILS PERCENT AUTO 0 % (0-2); EOSINOPHILS PERCENT AUTO 0 % (0-6); Hematocrit 31.7 % (33.0-51.0); Hemoglobin 9.2 g/dL (11.5-16.0); IMMATURE GRAN ABSOLUTE AUTO 0.16 K/mm3 (0.00-0.10); IMMATURE GRAN PERCENT AUTO 1 % (0-1); LYMPHOCYTES PERCENT AUTO 2 % (21-46); MONOCYTES ABSOLUTE AUTO 0.44 K/mm3 (0.16-1.47); MONOCYTES PERCENT AUTO 3 % (4-13); Mean Corpuscular HGB 27.6 pg (26.0-34.0); Mean Corpuscular Volume 95 fL (80-100); Mean Platelet Volume 9.5 fL (9.1-12.4); NEUTROPHILS ABSOLUTE AUTO 13.06 K/mm3 (1.96-9.15); NEUTROPHILS PERCENT AUTO 94 % (41-73); Platelet Count 272 K/mm3 (150-400); RDW Coefficient Variation 15.9 % (11.7-14.2); RDW Standard Deviation 55.5 fL (35.1-46.3); Red Blood Cell Count 3.33 M/mm3 (3.80-5.20); White Blood Cell Count 13.98 K/mm3 (4.00-11.30)
[2018-09-14 05:46] LABS: Anion Gap 5 mmol/L (6-16); Blood Urea Nitrogen 18 mg/dL (8-24); Bun/Creatinine Ratio 26.5 (12.0-20.0); CO2, Blood 31 mmol/L (21-32); Chloride, Blood 104 mmol/L (98-108); Creatinine, Blood 0.68 mg/dL (0.40-1.00); Glomerular Filtration Rate >60 (60-); Glucose, Blood 150 mg/dL (70-99); Potassium, Blood 4.5 mmol/L (3.5-5.5); Sodium, Blood 140 mmol/L (136-145)
[2018-09-15 05:05] LABS: BASOPHILS ABSOLUTE AUTO 0.02 K/mm3 (0.00-0.23); BASOPHILS PERCENT AUTO 0 % (0-2); EOSINOPHILS PERCENT AUTO 0 % (0-6); Hematocrit 31.2 % (33.0-51.0); Hemoglobin 9.3 g/dL (11.5-16.0); IMMATURE GRAN ABSOLUTE AUTO 0.22 K/mm3 (0.00-0.10); IMMATURE GRAN PERCENT AUTO 2 % (0-1); LYMPHOCYTES ABSOLUTE AUTO 0.38 K/mm3 (0.84-5.20); LYMPHOCYTES PERCENT AUTO 3 % (21-46); MONOCYTES ABSOLUTE AUTO 0.43 K/mm3 (0.16-1.47); MONOCYTES PERCENT AUTO 3 % (4-13); Mean Corpuscular HGB 27.5 pg (26.0-34.0); Mean Corpuscular HGB Conc 29.8 g/dL (31.5-36.5); Mean Platelet Volume 9.6 fL (9.1-12.4); NEUTROPHILS ABSOLUTE AUTO 13.76 K/mm3 (1.96-9.15); NEUTROPHILS PERCENT AUTO 93 % (41-73); Platelet Count 269 K/mm3 (150-400); RDW Coefficient Variation 16.3 % (11.7-14.2); RDW Standard Deviation 54.4 fL (35.1-46.3); Red Blood Cell Count 3.38 M/mm3 (3.80-5.20); White Blood Cell Count 14.81 K/mm3 (4.00-11.30)
[2018-09-15 05:06] LABS: Mean Corpuscular Volume 92 fL (80-100)
[2018-09-15 05:25] LABS: Anion Gap 7 mmol/L (6-16); Blood Urea Nitrogen 20 mg/dL (8-24); Bun/Creatinine Ratio 27.4 (12.0-20.0); CO2, Blood 31 mmol/L (21-32); Calcium, Blood 8.7 mg/dL (8.5-10.1); Chloride, Blood 101 mmol/L (98-108); Creatinine, Blood 0.73 mg/dL (0.40-1.00); Glomerular Filtration Rate >60 (60-); Glucose, Blood 124 mg/dL (70-99); Potassium, Blood 4.2 mmol/L (3.5-5.5); Sodium, Blood 139 mmol/L (136-145)
[2018-09-16 05:30] LABS: Hematocrit 33.7 % (33.0-51.0); Hemoglobin 10.1 g/dL (11.5-16.0); Mean Corpuscular Volume 93 fL (80-100); Mean Platelet Volume 9.7 fL (9.1-12.4); Platelet Count 294 K/mm3 (150-400); RDW Coefficient Variation 16.1 % (11.7-14.2); RDW Standard Deviation 55.1 fL (35.1-46.3); Red Blood Cell Count 3.61 M/mm3 (3.80-5.20); White Blood Cell Count 15.55 K/mm3 (4.00-11.30)
[2018-09-16 05:59] LABS: BAND PERCENT MAN 1 % (0-8); BASOPHILS PERCENT MAN 0 % (0-2); EOSINOPHILS PERCENT MAN 0 % (0-6); LYMPHOCYTES ABSOLUTE MAN 0.62 K/mm3 (0.84-5.20); LYMPHOCYTES PERCENT MAN 4 % (21-46); MONOCYTES ABSOLUTE MAN 0.15 K/mm3 (0.16-1.47); MONOCYTES PERCENT MAN 1 % (4-13); MYELOCYTE ABSOLUTE MAN 0.31 K/mm3 (0.00-0.00); MYELOCYTE PERCENT MAN 2 % (0-0); NEUTROPHILS ABSOLUTE MAN 14.46 K/mm3 (1.96-9.15); SEG NEUTROPHILS PERCENT MAN 92 % (41-73); TOTAL CELLS COUNTED 100
[2018-09-17 05:15] LABS: PCO2 Arterial 51.8 mmHg (35-45); PO2 Arterial 58.8 mmHg (80-100); pH Blood Arterial 7.44 (7.35-7.45)
[2018-09-17 05:19] LABS: BASOPHILS ABSOLUTE AUTO 0.03 K/mm3 (0.00-0.23); BASOPHILS PERCENT AUTO 0 % (0-2); EOSINOPHILS ABSOLUTE AUTO 0.01 K/mm3 (0.00-0.68); EOSINOPHILS PERCENT AUTO 0 % (0-6); Hematocrit 33.4 % (33.0-51.0); IMMATURE GRAN ABSOLUTE AUTO 0.31 K/mm3 (0.00-0.10); IMMATURE GRAN PERCENT AUTO 2 % (0-1); LYMPHOCYTES ABSOLUTE AUTO 0.95 K/mm3 (0.84-5.20); LYMPHOCYTES PERCENT AUTO 5 % (21-46); MONOCYTES ABSOLUTE AUTO 1.33 K/mm3 (0.16-1.47); MONOCYTES PERCENT AUTO 7 % (4-13); Mean Corpuscular HGB 27.5 pg (26.0-34.0); Mean Corpuscular HGB Conc 29.9 g/dL (31.5-36.5); Mean Corpuscular Volume 92 fL (80-100); Mean Platelet Volume 9.8 fL (9.1-12.4); NEUTROPHILS ABSOLUTE AUTO 15.33 K/mm3 (1.96-9.15); NEUTROPHILS PERCENT AUTO 85 % (41-73); Platelet Count 298 K/mm3 (150-400); RDW Standard Deviation 53.8 fL (35.1-46.3); Red Blood Cell Count 3.63 M/mm3 (3.80-5.20); White Blood Cell Count 17.96 K/mm3 (4.00-11.30)
[2018-09-18 05:25] LABS: BASOPHILS ABSOLUTE AUTO 0.04 K/mm3 (0.00-0.23); BASOPHILS PERCENT AUTO 0 % (0-2); EOSINOPHILS ABSOLUTE AUTO 0.03 K/mm3 (0.00-0.68); EOSINOPHILS PERCENT AUTO 0 % (0-6); Hematocrit 38.1 % (33.0-51.0); Hemoglobin 11.2 g/dL (11.5-16.0); IMMATURE GRAN ABSOLUTE AUTO 0.35 K/mm3 (0.00-0.10); IMMATURE GRAN PERCENT AUTO 2 % (0-1); LYMPHOCYTES ABSOLUTE AUTO 1.05 K/mm3 (0.84-5.20); LYMPHOCYTES PERCENT AUTO 6 % (21-46); MONOCYTES ABSOLUTE AUTO 1.06 K/mm3 (0.16-1.47); MONOCYTES PERCENT AUTO 7 % (4-13); Mean Corpuscular HGB 27.3 pg (26.0-34.0); Mean Corpuscular HGB Conc 29.4 g/dL (31.5-36.5); Mean Corpuscular Volume 93 fL (80-100); Mean Platelet Volume 9.5 fL (9.1-12.4); NEUTROPHILS ABSOLUTE AUTO 13.78 K/mm3 (1.96-9.15); NEUTROPHILS PERCENT AUTO 85 % (41-73); Platelet Count 343 K/mm3 (150-400); RDW Coefficient Variation 15.7 % (11.7-14.2); RDW Standard Deviation 53.8 fL (35.1-46.3); White Blood Cell Count 16.31 K/mm3 (4.00-11.30)
[2018-09-18 06:06] LABS: Alanine Aminotransfer (ALT/SGP 29 U/L (12-78); Albumin, Blood 2.8 g/dL (3.4-5.0); Albumin/Globulin Ratio 0.8 (0.8-1.8); Alk Phos 80 U/L (50-136); Anion Gap 4 mmol/L (6-16); Aspartate Aminotrans (AST/SGOT 15 U/L (12-37); Bilirubin, Total 0.5 mg/dL (0.1-1.0); Blood Urea Nitrogen 23 mg/dL (8-24); Bun/Creatinine Ratio 30.7 (12.0-20.0); CO2, Blood 35 mmol/L (21-32); Chloride, Blood 96 mmol/L (98-108); Creatinine, Blood 0.75 mg/dL (0.40-1.00); Globulin, Blood 3.4 g/dL (2.2-4.0); Glomerular Filtration Rate >60 (60-); Glucose, Blood 89 mg/dL (70-99); Potassium, Blood 4.5 mmol/L (3.5-5.5); Sodium, Blood 135 mmol/L (136-145); Total Protein, Blood 6.2 g/dL (6.4-8.2)
[2018-09-18 09:47] LABS: Anion Gap 7 mmol/L (6-16); Blood Urea Nitrogen 22 mg/dL (8-24); Bun/Creatinine Ratio 30.5 (12.0-20.0); CO2, Blood 34 mmol/L (21-32); Calcium, Blood 8.7 mg/dL (8.5-10.1); Chloride, Blood 94 mmol/L (98-108); Creatinine, Blood 0.72 mg/dL (0.40-1.00); Glomerular Filtration Rate >60 (60-); Glucose, Blood 109 mg/dL (70-99); Potassium, Blood 4.2 mmol/L (3.5-5.5); Sodium, Blood 135 mmol/L (136-145)
[2018-09-19 05:06] LABS: BASOPHILS ABSOLUTE AUTO 0.02 K/mm3 (0.00-0.23); BASOPHILS PERCENT AUTO 0 % (0-2); EOSINOPHILS ABSOLUTE AUTO 0.07 K/mm3 (0.00-0.68); EOSINOPHILS PERCENT AUTO 0 % (0-6); Hematocrit 33.9 % (33.0-51.0); Hemoglobin 10.3 g/dL (11.5-16.0); IMMATURE GRAN ABSOLUTE AUTO 0.32 K/mm3 (0.00-0.10); IMMATURE GRAN PERCENT AUTO 2 % (0-1); LYMPHOCYTES ABSOLUTE AUTO 0.97 K/mm3 (0.84-5.20); LYMPHOCYTES PERCENT AUTO 6 % (21-46); MONOCYTES ABSOLUTE AUTO 1.05 K/mm3 (0.16-1.47); MONOCYTES PERCENT AUTO 7 % (4-13); Mean Corpuscular HGB 27.8 pg (26.0-34.0); Mean Corpuscular HGB Conc 30.4 g/dL (31.5-36.5); Mean Corpuscular Volume 91 fL (80-100); Mean Platelet Volume 9.7 fL (9.1-12.4); NEUTROPHILS ABSOLUTE AUTO 13.61 K/mm3 (1.96-9.15); NEUTROPHILS PERCENT AUTO 85 % (41-73); Platelet Count 296 K/mm3 (150-400); RDW Coefficient Variation 15.5 % (11.7-14.2); RDW Standard Deviation 52.1 fL (35.1-46.3); Red Blood Cell Count 3.71 M/mm3 (3.80-5.20); White Blood Cell Count 16.04 K/mm3 (4.00-11.30)
[2018-09-21 04:57] LABS: BASOPHILS ABSOLUTE AUTO 0.02 K/mm3 (0.00-0.23); BASOPHILS PERCENT AUTO 0 % (0-2); EOSINOPHILS ABSOLUTE AUTO 0.05 K/mm3 (0.00-0.68); EOSINOPHILS PERCENT AUTO 0 % (0-6); Hematocrit 32.7 % (33.0-51.0); Hemoglobin 10.1 g/dL (11.5-16.0); IMMATURE GRAN ABSOLUTE AUTO 0.28 K/mm3 (0.00-0.10); IMMATURE GRAN PERCENT AUTO 2 % (0-1); LYMPHOCYTES ABSOLUTE AUTO 1.12 K/mm3 (0.84-5.20); LYMPHOCYTES PERCENT AUTO 7 % (21-46); MONOCYTES ABSOLUTE AUTO 1.12 K/mm3 (0.16-1.47); MONOCYTES PERCENT AUTO 7 % (4-13); Mean Corpuscular HGB 27.7 pg (26.0-34.0); Mean Corpuscular HGB Conc 30.9 g/dL (31.5-36.5); Mean Corpuscular Volume 90 fL (80-100); Mean Platelet Volume 9.3 fL (9.1-12.4); NEUTROPHILS ABSOLUTE AUTO 12.97 K/mm3 (1.96-9.15); NEUTROPHILS PERCENT AUTO 83 % (41-73); Platelet Count 301 K/mm3 (150-400); RDW Coefficient Variation 15.4 % (11.7-14.2); RDW Standard Deviation 50.7 fL (35.1-46.3); Red Blood Cell Count 3.65 M/mm3 (3.80-5.20); White Blood Cell Count 15.56 K/mm3 (4.00-11.30)
[2018-09-23 04:59] LABS: Hematocrit 33.1 % (33.0-51.0); Hemoglobin 9.8 g/dL (11.5-16.0); Mean Corpuscular HGB 27.1 pg (26.0-34.0); Mean Corpuscular HGB Conc 29.6 g/dL (31.5-36.5); Mean Corpuscular Volume 92 fL (80-100); Mean Platelet Volume 9.4 fL (9.1-12.4); Platelet Count 324 K/mm3 (150-400); RDW Coefficient Variation 15.4 % (11.7-14.2); RDW Standard Deviation 51.8 fL (35.1-46.3); Red Blood Cell Count 3.61 M/mm3 (3.80-5.20); White Blood Cell Count 17.45 K/mm3 (4.00-11.30)
[2018-09-23 05:18] LABS: Anion Gap 7 mmol/L (6-16); Blood Urea Nitrogen 22 mg/dL (8-24); Bun/Creatinine Ratio 39.4 (12.0-20.0); CO2, Blood 36 mmol/L (21-32); Calcium, Blood 8.3 mg/dL (8.5-10.1); Chloride, Blood 94 mmol/L (98-108); Creatinine, Blood 0.56 mg/dL (0.40-1.00); Glomerular Filtration Rate >60 (60-); Glucose, Blood 121 mg/dL (70-99); Potassium, Blood 3.4 mmol/L (3.5-5.5); Sodium, Blood 137 mmol/L (136-145)
[2018-09-24 05:04] LABS: Hematocrit 31.7 % (33.0-51.0); Hemoglobin 9.4 g/dL (11.5-16.0); Mean Corpuscular HGB 27.2 pg (26.0-34.0); Mean Corpuscular HGB Conc 29.7 g/dL (31.5-36.5); Mean Corpuscular Volume 92 fL (80-100); Mean Platelet Volume 9.3 fL (9.1-12.4); Platelet Count 313 K/mm3 (150-400); RDW Coefficient Variation 15.3 % (11.7-14.2); RDW Standard Deviation 51.5 fL (35.1-46.3); Red Blood Cell Count 3.45 M/mm3 (3.80-5.20); White Blood Cell Count 17.07 K/mm3 (4.00-11.30)
[2018-09-24 05:33] LABS: Anion Gap 5 mmol/L (6-16); Blood Urea Nitrogen 24 mg/dL (8-24); Bun/Creatinine Ratio 43.2 (12.0-20.0); CO2, Blood 37 mmol/L (21-32); Calcium, Blood 8.3 mg/dL (8.5-10.1); Chloride, Blood 97 mmol/L (98-108); Creatinine, Blood 0.56 mg/dL (0.40-1.00); Glomerular Filtration Rate >60 (60-); Glucose, Blood 108 mg/dL (70-99); Potassium, Blood 3.8 mmol/L (3.5-5.5); Sodium, Blood 139 mmol/L (136-145)
[2018-09-24] MEDS ORDERED: ASCO500 PO (10:13)
[2018-09-24] MEDS ORDERED: PANT40 PO (10:14)
[2018-09-24] MEDS ORDERED: Ferrous Sulfat325 MG PO (10:14)
[2018-09-24] MEDS ORDERED: AZIT250 PO (10:15)
[2018-09-24] MEDS ORDERED: ATOR40TA PO (12:52)
== END 2018-09-24 18:23 | disposition home or self-care (01) | DRG 207 ==
LOC: ER 18:18 → ICUE 22:00 → MEDS 22:00 → ICUW 22:00 → ICUE 22:23 → MEDS 09-13 15:14 → ENPENDDIS 09-24 09:01 → MEDS 09-24 18:23
PROVIDERS: Emergency Medicine; Family Medicine; Hospitalist; Internal Medicine; Internal Medicine Critical Care Medicine; Nurse Practitioner Acute Care
PROC: 5A1955Z Respiratory Ventilation, Greater than 96 Consecutive Hours (ICD-10-PCS; principal; 2018-09-11)
PROC: 0BH17EZ Insertion of Endotracheal Airway into Trachea, Via Natural or Artificial Opening (ICD-10-PCS; 2018-09-11)
PROC: 0BP1XDZ Removal of Intraluminal Device from Trachea, External Approach (ICD-10-PCS; 2018-09-12)
DX: J96.02 Acute respiratory failure with hypercapnia (principal); J15.1 Pneumonia due to Pseudomonas; G92 Toxic encephalopathy; J47.0 Bronchiectasis with acute lower respiratory infection; I50.32 Chronic diastolic (congestive) heart failure; L97.821 Non-pressure chronic ulcer of other part of left lower leg limited to breakdown of skin; L97.811 Non-pressure chronic ulcer of other part of right lower leg limited to breakdown of skin; J96.21 Acute and chronic respiratory failure with hypoxia; Z99.81 Dependence on supplemental oxygen; E86.0 Dehydration; I11.0 Hypertensive heart disease with heart failure; D63.8 Anemia in other chronic diseases classified elsewhere; E78.5 Hyperlipidemia, unspecified; R29.6 Repeated falls; F32.9 Major depressive disorder, single episode, unspecified; F41.9 Anxiety disorder, unspecified; R60.0 Localized edema; L53.9 Erythematous condition, unspecified; I73.9 Peripheral vascular disease, unspecified; E87.6 Hypokalemia; F17.200 Nicotine dependence, unspecified, uncomplicated; E16.2 Hypoglycemia, unspecified; T40.2X5A Adverse effect of other opioids, initial encounter; Y92.9 Unspecified place or not applicable; D72.829 Elevated white blood cell count, unspecified; Z92.3 Personal history of irradiation; Z85.118 Personal history of other malignant neoplasm of bronchus and lung; Z79.899 Other long term (current) drug therapy; Z92.21 Personal history of antineoplastic chemotherapy; Z91.81 History of falling; Z79.82 Long term (current) use of aspirin; Z95.820 Peripheral vascular angioplasty status with implants and grafts; Z88.0 Allergy status to penicillin
CPT/HCPCS: 31500; 31720; 36415; 36600; 51702; 70450; 71045; 71046; 71260; 80048; 80053; 82803; 82947; 83605; 83735; 83880; 84145; 84443; 84484; 85025; 85027; 87070; 87077; 87186; 87205; 90471; 90714; 93005; 93010; 93971; 94002; 94003; 94640; 94660; 94667; 94668; 94760; 94762; 97110; 97116; 97162; 97166; 97530; 97535; 99291-25; 99292; 99406; C9113; G0480; G8978; G8979; G8987; G8988; J0330; J0360; J0456; J1650; J1815; J1956; J2060; J2185; J2250; J2765; J2930; J3010; J7030; J7050; Q9967

== ENCOUNTER 2018-11-05 23:25 | Inpatient (IN) | payer MEDICARE ==
[~2018-11-05] VITALS: Ht 165.1 cm; Wt 66.2 kg
[~2018-11-05 23:25] MED LIST changes: +ASCO500 PO; +ATOR40TA PO; +Ferrous Sulfat325 MG PO; +PANT40 PO
[2018-11-05] MEDS ORDERED: LOVA40 (23:47)
[2018-11-05] MEDS ORDERED: CLON.5 PO (23:48)
[2018-11-05] MEDS ORDERED: AZIT250 PO (23:50)
[2018-11-05] MEDS ORDERED: TRELEGY ELLIPT1 EACH (23:50)
[2018-11-05] MEDS ORDERED: Bactrim 400-801 EACH PO (23:55)
[2018-11-06 00:08] LABS: BASOPHILS ABSOLUTE AUTO 0.03 K/mm3 (0.00-0.23); BASOPHILS PERCENT AUTO 0 % (0-2); EOSINOPHILS ABSOLUTE AUTO 0.22 K/mm3 (0.00-0.68); EOSINOPHILS PERCENT AUTO 2 % (0-6); Hematocrit 27.2 % (33.0-51.0); IMMATURE GRAN ABSOLUTE AUTO 0.03 K/mm3 (0.00-0.10); IMMATURE GRAN PERCENT AUTO 0 % (0-1); LYMPHOCYTES ABSOLUTE AUTO 0.82 K/mm3 (0.84-5.20); LYMPHOCYTES PERCENT AUTO 8 % (21-46); MONOCYTES ABSOLUTE AUTO 0.88 K/mm3 (0.16-1.47); MONOCYTES PERCENT AUTO 9 % (4-13); Mean Corpuscular HGB 27.6 pg (26.0-34.0); Mean Corpuscular HGB Conc 29.4 g/dL (31.5-36.5); Mean Platelet Volume 9.4 fL (9.1-12.4); NEUTROPHILS ABSOLUTE AUTO 7.85 K/mm3 (1.96-9.15); NEUTROPHILS PERCENT AUTO 80 % (41-73); Platelet Count 283 K/mm3 (150-400); White Blood Cell Count 9.83 K/mm3 (4.00-11.30)
[2018-11-06 00:12] LABS: Mean Corpuscular Volume 94 fL (80-100)
[2018-11-06 00:21] LABS: Alanine Aminotransfer (ALT/SGP 17 U/L (12-78); Albumin, Blood 2.8 g/dL (3.4-5.0); Albumin/Globulin Ratio 0.7 (0.8-1.8); Alk Phos 90 U/L (50-136); Anion Gap 6 mmol/L (6-16); Aspartate Aminotrans (AST/SGOT 16 U/L (12-37); Bilirubin, Total 0.3 mg/dL (0.1-1.0); Blood Urea Nitrogen 19 mg/dL (8-24); Bun/Creatinine Ratio 22.1 (12.0-20.0); CO2, Blood 33 mmol/L (21-32); Calcium, Blood 8.6 mg/dL (8.5-10.1); Chloride, Blood 103 mmol/L (98-108); Creatinine, Blood 0.86 mg/dL (0.40-1.00); Globulin, Blood 3.9 g/dL (2.2-4.0); Glomerular Filtration Rate >60 (60-); Glucose, Blood 104 mg/dL (70-99); Potassium, Blood 4.1 mmol/L (3.5-5.5); Sodium, Blood 142 mmol/L (136-145); Total Protein, Blood 6.7 g/dL (6.4-8.2)
[2018-11-06 05:24] LABS: Percent Saturation 6.2 % (15.0-50.0)
[2018-11-06 10:53] LABS: Adenovirus Not Detected (NOT DETECT); Bordetella pertussis Not Detected (NOT DETECT); Chlamydophila pneumoniae Not Detected (NOT DETECT); Coronavirus 229E Not Detected (NOT DETECT); Coronavirus HKU1 Not Detected (NOT DETECT); Coronavirus NL63 Not Detected (NOT DETECT); Coronavirus OC43 Not Detected (NOT DETECT); Human Metapneumovirus Not Detected (NOT DETECT); Human Rhinovirus/Enterovirus Not Detected (NOT DETECT); Influenza A/2009-H1 Not Detected (NOT DETECT); Influenza A/H1 Not Detected (NOT DETECT); Influenza A/H3 Not Detected (NOT DETECT); Influenza B Not Detected (NOT DETECT); Mycoplasma pneumoniae Not Detected (NOT DETECT); Parainfluenza Virus 1 Not Detected (NOT DETECT); Parainfluenza Virus 2 Not Detected (NOT DETECT); Parainfluenza Virus 3 Not Detected (NOT DETECT); Parainfluenza Virus 4 Not Detected (NOT DETECT); Respiratory Syncytial Virus Not Detected (NOT DETECT)
[2018-11-06 12:10] LABS: Influenza A Not Detected (NOT DETECT)
--- NOTE | 2018-11-06 18:37 | NUR ---
PATIENT UP IN ROOM WITH A STANDBY ASSIST. STOOL AND SPUTUM SAMPLES SENT TO LAB. MRSA RULEOUT SWABS SENT. POSSIBLE DISCHARGE TOMORROW.
[2018-11-07 04:39] LABS: Stool Occult Blood Guaiac 1 Pos (Neg)
--- NOTE | 2018-11-07 05:20 | NUR ---
SHIFT SUMMARY PT HAS BEEN UNREMAKABLE THIS SHIFT. PT HAS BEEN BREATHING EASY AND DENIES ANY ACUTE ISSUES. PT TX BY RT WITH GOOD RESULTS. PT HAS SLEPT FOR MOST OF SHIFT. PT BED IN LOW POSITION AND CALL LIGHT IN REACH.
--- NOTE | 2018-11-07 19:16 | NUR ---
SHIFT SUMMARY: NO ACUTE CHANGES TO REPORT THIS SHIFT. SOLDERING TECHNICIAN&O; CALM AND COOPERATIVE WITH CARE. NO C/O PAIN THIS SHIFT. PT WEAK; UP TO BSC c FWW.LUNGS WET; OT ADDITIONAL LASIX THIS SHIFT. O2 REQUIREMENTS INCREASED TO 4L TO MAINTAIN SATS; SOB c EXERTION. REPORT GIVEN TO ONCOMING RN.
[2018-11-08 04:52] LABS: BASOPHILS ABSOLUTE AUTO 0.02 K/mm3 (0.00-0.23); BASOPHILS PERCENT AUTO 0 % (0-2); EOSINOPHILS ABSOLUTE AUTO 0.08 K/mm3 (0.00-0.68); EOSINOPHILS PERCENT AUTO 1 % (0-6); Hematocrit 26.7 % (33.0-51.0); Hemoglobin 7.8 g/dL (11.5-16.0); IMMATURE GRAN ABSOLUTE AUTO 0.03 K/mm3 (0.00-0.10); IMMATURE GRAN PERCENT AUTO 0 % (0-1); LYMPHOCYTES ABSOLUTE AUTO 1.03 K/mm3 (0.84-5.20); LYMPHOCYTES PERCENT AUTO 11 % (21-46); MONOCYTES ABSOLUTE AUTO 0.77 K/mm3 (0.16-1.47); MONOCYTES PERCENT AUTO 8 % (4-13); Mean Corpuscular HGB 27.2 pg (26.0-34.0); Mean Corpuscular HGB Conc 29.2 g/dL (31.5-36.5); Mean Corpuscular Volume 93 fL (80-100); Mean Platelet Volume 8.8 fL (9.1-12.4); NEUTROPHILS ABSOLUTE AUTO 7.88 K/mm3 (1.96-9.15); NEUTROPHILS PERCENT AUTO 80 % (41-73); Platelet Count 302 K/mm3 (150-400); RDW Coefficient Variation 15.2 % (11.7-14.2); RDW Standard Deviation 51.9 fL (35.1-46.3); Red Blood Cell Count 2.87 M/mm3 (3.80-5.20); White Blood Cell Count 9.81 K/mm3 (4.00-11.30)
--- NOTE | 2018-11-08 05:37 | NUR ---
SHIFT SUMMARY PT SLEPT FAIR, MEDICATED X2 FOR PAIN THIS SHIFT. OXYGEN ON PER NASAL CANNULA. CPAP WORN FOR ONLY A COUPLE OF HOURS BEFORE PT TOOK OFF. NO ACUTE CHANGES NOTED DURING THE NIGHT. WILL CONTINUE TO MONITOR.
[2018-11-08 05:41] LABS: Alanine Aminotransfer (ALT/SGP 14 U/L (12-78); Albumin, Blood 2.6 g/dL (3.4-5.0); Albumin/Globulin Ratio 0.7 (0.8-1.8); Alk Phos 71 U/L (50-136); Anion Gap 8 mmol/L (6-16); Aspartate Aminotrans (AST/SGOT 14 U/L (12-37); Bilirubin, Total 0.6 mg/dL (0.1-1.0); Blood Urea Nitrogen 16 mg/dL (8-24); CO2, Blood 35 mmol/L (21-32); Calcium, Blood 8.6 mg/dL (8.5-10.1); Chloride, Blood 99 mmol/L (98-108); Globulin, Blood 3.8 g/dL (2.2-4.0); Glomerular Filtration Rate >60 (60-); Glucose, Blood 87 mg/dL (70-99); Magnesium, Blood 1.9 mg/dL (1.6-2.4); Potassium, Blood 3.5 mmol/L (3.5-5.5); Sodium, Blood 142 mmol/L (136-145); Total Protein, Blood 6.4 g/dL (6.4-8.2)
--- NOTE | 2018-11-08 18:23 | NUR ---
SHIFT SUMMARY PT AXO PLEASANT AND COOPERATIVE WITH CARE. SOB WITH EXERTION. MEDICATED FOR PAIN (HEADACHE) AND FEVER PER EMAR. AT 1745, PT TEMP WAS 99. PT UP TO CHAIR FOR DINNER. OTHER VSS. PT EAGER TO BE DISCHARGED HOME. NO OTHER CHANGES THIS SHIFT. BED IN LOW POSITION, CALL LIGHT WITHIN REACH. PT EDUCATED ABOUT THE NEED FOR FURTHER STOOL SAMPLE, PT STATES SHE MAY NOT BE ABLE TO PRODUCE A SAMPLE FOR A WHILE. IV PATENT AND SALINE LOCKED.
[2018-11-09 05:17] LABS: BASOPHILS ABSOLUTE AUTO 0.02 K/mm3 (0.00-0.23); BASOPHILS PERCENT AUTO 0 % (0-2); EOSINOPHILS ABSOLUTE AUTO 0.08 K/mm3 (0.00-0.68); EOSINOPHILS PERCENT AUTO 1 % (0-6); Hematocrit 27.2 % (33.0-51.0); IMMATURE GRAN ABSOLUTE AUTO 0.05 K/mm3 (0.00-0.10); IMMATURE GRAN PERCENT AUTO 0 % (0-1); LYMPHOCYTES ABSOLUTE AUTO 1.14 K/mm3 (0.84-5.20); LYMPHOCYTES PERCENT AUTO 9 % (21-46); MONOCYTES ABSOLUTE AUTO 0.91 K/mm3 (0.16-1.47); MONOCYTES PERCENT AUTO 8 % (4-13); Mean Corpuscular HGB 26.7 pg (26.0-34.0); Mean Corpuscular HGB Conc 29.4 g/dL (31.5-36.5); Mean Corpuscular Volume 91 fL (80-100); NEUTROPHILS ABSOLUTE AUTO 9.88 K/mm3 (1.96-9.15); NEUTROPHILS PERCENT AUTO 82 % (41-73); RDW Coefficient Variation 15.2 % (11.7-14.2); RDW Standard Deviation 50.1 fL (35.1-46.3); White Blood Cell Count 12.08 K/mm3 (4.00-11.30)
[2018-11-09 05:22] LABS: Mean Platelet Volume 9.5 fL (9.1-12.4); Platelet Count 344 K/mm3 (150-400)
[2018-11-09 05:41] LABS: Anion Gap 7 mmol/L (6-16); Blood Urea Nitrogen 16 mg/dL (8-24); Bun/Creatinine Ratio 22.3 (12.0-20.0); CO2, Blood 35 mmol/L (21-32); Calcium, Blood 8.6 mg/dL (8.5-10.1); Chloride, Blood 99 mmol/L (98-108); Creatinine, Blood 0.72 mg/dL (0.40-1.00); Glomerular Filtration Rate >60 (60-); Glucose, Blood 94 mg/dL (70-99); Potassium, Blood 3.2 mmol/L (3.5-5.5); Sodium, Blood 141 mmol/L (136-145)
--- NOTE | 2018-11-09 05:45 | NUR ---
SHIFT SUMMARY SLEPT WELL, NO ACUTE CHANGES NOTED. PT C/O HEADACHE THIS AM, TYLENOL GIVEN. PT ALSO STATES SHE FEELS LIKE SHE'S STARTING TO HAVE ANXIETY, CLONAZEPAM GIVEN. OXYGEN REMAINS ON PER NC. WILL CONTINUE TO MONITOR.
[2018-11-09] MEDS ORDERED: GUAI600T33 PO (15:35)
[2018-11-09] MEDS ORDERED: PRED20 PO (15:36)
[2018-11-09] MEDS ORDERED: PANT40 PO (15:36)
[2018-11-09] MEDS ORDERED: SPIR25 PO (15:37)
--- NOTE | 2018-11-09 18:02 | NUR ---
1714 PT DISHCARGED HOME VIA PERSONAL VEHICLE ACCOMPANIED AND DRIVEN BY SISTER. PT ESCORTED TO FACILITY ENTRANCE VIA W/C BY THIS RN. PT TOOK HOME CPAP AND HOME O2 TANK. IV REMOVED. D/C PAPERWORK REVIEWED WITH PT AND COPY PROVIDED. PT DISHCARGED ON BASELINE O2 3L NC. NO NEW CHANGES.
== END 2018-11-09 17:14 | disposition home or self-care (01) | DRG 190 ==
LOC: ER 23:25 → MEDS 23:26 → ER 11-06 03:46 → MEDS 11-06 03:46 → ENPENDDIS 11-09 15:14 → MEDS 11-09 17:14
PROVIDERS: Emergency Medicine; Hospitalist; Internal Medicine; ADMIT Family Medicine
DX: J44.1 Chronic obstructive pulmonary disease with (acute) exacerbation (principal); J96.21 Acute and chronic respiratory failure with hypoxia; I50.32 Chronic diastolic (congestive) heart failure; I11.0 Hypertensive heart disease with heart failure; D63.8 Anemia in other chronic diseases classified elsewhere; Z99.81 Dependence on supplemental oxygen; I73.9 Peripheral vascular disease, unspecified; E78.5 Hyperlipidemia, unspecified; F32.9 Major depressive disorder, single episode, unspecified; K21.9 Gastro-esophageal reflux disease without esophagitis; Z88.0 Allergy status to penicillin; Z79.899 Other long term (current) drug therapy; Z87.891 Personal history of nicotine dependence
CPT/HCPCS: 36415; 71045; 80048; 80053; 82270; 82607; 82728; 82746; 83540; 83550; 83735; 83880; 84484; 85025; 87070; 87077; 87081; 87186; 87205; 87486; 87581; 87633; 87798; 93005; 93010; 94640; 94644; 94667; 94762; 96374; 99285-25; J1650; J1940; J2916; J2930

== ENCOUNTER → 2018-12-11 | Outpatient (CLI) | payer MEDICARE ==
[~2018-12-11] MED LIST changes: +Bactrim 400-801 EACH PO; +LOVA40; +SPIR25 PO; +TRELEGY ELLIPT1 EACH
== END | disposition home or self-care (01) ==
LOC: LAB 16:30 → LAB SHORT 16:30
DX: L97.211 Non-pressure chronic ulcer of right calf limited to breakdown of skin (principal)
CPT/HCPCS: 87070; 87205

== ENCOUNTER 2019-02-01 12:27 | Inpatient (IN) | payer MEDICARE ==
[~2019-02-01] VITALS: Ht 167.6 cm; Wt 63.3 kg
[~2019-02-01 12:27] MED LIST changes: -Abilify5 MG PO; -Budeprion Xl300 MG PO; -LOVA40; -Lopressor 25 mg25 MG PO; -MONT10T PO; -PROAIR RESPICL90 MCG INH
[2019-02-01 12:44] LABS: PO2 Arterial 160 mmHg (80-100)
[2019-02-01 12:45] LABS: PCO2 Arterial 94.6 mmHg (35-45); pH Blood Arterial 7.22 (7.35-7.45)
[2019-02-01 13:09] LABS: BASOPHILS ABSOLUTE AUTO 0.06 K/mm3 (0.00-0.23); BASOPHILS PERCENT AUTO 0 % (0-2); EOSINOPHILS ABSOLUTE AUTO 0.08 K/mm3 (0.00-0.68); EOSINOPHILS PERCENT AUTO 0 % (0-6); Hematocrit 39.7 % (33.0-51.0); Hemoglobin 10.8 g/dL (11.5-16.0); IMMATURE GRAN ABSOLUTE AUTO 0.09 K/mm3 (0.00-0.10); IMMATURE GRAN PERCENT AUTO 0 % (0-1); LYMPHOCYTES ABSOLUTE AUTO 1.27 K/mm3 (0.84-5.20); LYMPHOCYTES PERCENT AUTO 6 % (21-46); MONOCYTES ABSOLUTE AUTO 0.79 K/mm3 (0.16-1.47); MONOCYTES PERCENT AUTO 4 % (4-13); Mean Corpuscular HGB 25.6 pg (26.0-34.0); Mean Corpuscular HGB Conc 27.2 g/dL (31.5-36.5); Mean Corpuscular Volume 94 fL (80-100); Mean Platelet Volume 10.5 fL (9.1-12.4); NEUTROPHILS ABSOLUTE AUTO 20.05 K/mm3 (1.96-9.15); NEUTROPHILS PERCENT AUTO 90 % (41-73); Platelet Count 327 K/mm3 (150-400); RDW Coefficient Variation 14.5 % (11.7-14.2); RDW Standard Deviation 50.4 fL (35.1-46.3); Red Blood Cell Count 4.22 M/mm3 (3.80-5.20); White Blood Cell Count 22.34 K/mm3 (4.00-11.30)
[2019-02-01 13:24] LABS: Alanine Aminotransfer (ALT/SGP 18 U/L (12-78); Albumin, Blood 3.8 g/dL (3.4-5.0); Albumin/Globulin Ratio 0.9 (0.8-1.8); Alk Phos 103 U/L (50-136); Anion Gap 5 mmol/L (6-16); Aspartate Aminotrans (AST/SGOT 17 U/L (12-37); Bilirubin, Total 0.3 mg/dL (0.1-1.0); Blood Urea Nitrogen 23 mg/dL (8-24); Bun/Creatinine Ratio 28.2 (12.0-20.0); CO2, Blood 36 mmol/L (21-32); Calcium, Blood 9.1 mg/dL (8.5-10.1); Chloride, Blood 99 mmol/L (98-108); Creatinine, Blood 0.82 mg/dL (0.40-1.00); Globulin, Blood 4.3 g/dL (2.2-4.0); Glomerular Filtration Rate >60 (60-); Glucose, Blood 150 mg/dL (70-99); Potassium, Blood 4.4 mmol/L (3.5-5.5); Sodium, Blood 140 mmol/L (136-145); Total Protein, Blood 8.1 g/dL (6.4-8.2)
[2019-02-01 14:45] LABS: PCO2 Arterial 86 mmHg (35-45); PO2 Arterial 61.2 mmHg (80-100); pH Blood Arterial 7.28 (7.35-7.45)
[2019-02-01] MEDS ORDERED: Lopressor 25 mg25 MG PO (15:15)
[2019-02-01] MEDS ORDERED: ALBU90OI61 INH (15:17)
[2019-02-01] MEDS ORDERED: Abilify5 MG PO (15:18)
[2019-02-01] MEDS ORDERED: COMBIVENT RESPIM4 GM INH (15:18)
[2019-02-01] MEDS ORDERED: Budeprion Xl300 MG PO (15:20)
[2019-02-01] MEDS ORDERED: Aspirin EC81 MG PO (15:20)
[2019-02-01] MEDS ORDERED: CLON.5 PO (15:21)
[2019-02-01] MEDS ORDERED: FURO20 PO (15:23)
[2019-02-01] MEDS ORDERED: GABA300 PO (15:24)
[2019-02-01] MEDS ORDERED: GUAI600T33 PO (15:25)
--- NOTE | 2019-02-01 15:25 | NUR ---
Present with dtr and grand-dtr throughout rapid response and ED. Provided calm presence and assurance of care. Family tearful. Dtr admits, pt's QOL is less than pt wants. Dtr tells me pt beleives illness will become manageable. Family also hoping for improvement. Clear understanding of disease path and gentle conversation regarding advanced care planning will most likely benefit pt and family. Grand-daughter, Kassi, is an RT here at [facility]. I will remain available.
[2019-02-01] MEDS ORDERED: Lovastatin20 MG PO (15:26)
[2019-02-01] MEDS ORDERED: MONT10T PO (15:27)
[2019-02-01] MEDS ORDERED: PANT40 PO (15:28)
[2019-02-01] MEDS ORDERED: AZIT250 PO (15:29)
[2019-02-01] MEDS ORDERED: ARIPIPRAZOLE5 MG PO (15:30)
[2019-02-01] MEDS ORDERED: PRED5 PO (15:31)
--- NOTE | 2019-02-01 17:19 | NUR ---
PT ADMITTED TO ICU 4 AT 1615 FOR ACUTE RESP FAILURE. PT SOMULENT ON ADMIT, AWAKENS TO TOUCH BUT ONLY FOR SECONDS, UNABLE TO ANSWER QUESTIONS BEFORE FALLING BACK TO SLEEP. PT COMES ON BIPAP W RT AND CATTLE KILLER. 27/05 WITH A BACK UP RATE OF 18, FIO2 AT 60% AND HAS BEEN SINCE TITRATED DOWN TO 50%. RESP RATE 20'S. SATS 91-94%. TV ADEQUATE. LUNGS TIGHT T/O, SOMEWHAT COARSE T/O, VERY DIMINISHED TO BASES. PT HAS SOME VENOUS/ARTERIAL INSUFFICIENCY. BOTH LEGS TIGHT/SHINNY/RED AND WARM. R LEG WARMER AND MORE RED THAN LEFT. GOOD CAP REFILL. EXISTING ULCER TO RIGHT 2ND TOE NOTED. FAMILY STATES IT HAS BEEN HEALING WELL. PT IN NSR, BP STABLE.
--- NOTE | 2019-02-01 18:35 | NUR ---
PT UNABLE TO VOID ON BEDPAN. ROLLING ON AND OFF BED [place] CAUSED SOME RESP DISTRESS, WITH INCREASED RESP AND DECREASE IN SATS. 14F HELTON TEMP PROBE PLACED W/O DIFFICULTY. URINE SAMPLE SENT.
[2019-02-01 18:38] LABS: Source, Urine Clean Catch
[2019-02-01 18:54] LABS: Bilirubin, Urine Neg (Neg); Blood, Urine 2+ (Neg); Glucose Qualitative, Urine Neg (Neg); Ketones, Urine Neg (Neg); Leukocyte Esterase, Urine Neg (Neg); Nitrite, Urine Neg (Neg); Protein, Urine 3+ (Neg); Urobilinogen, Urine NORM (Normal)
[2019-02-01 19:19] LABS: Appearance, Urine Hazy (Clear); Color, Urine Yellow (P-Yellow)
[2019-02-01 19:21] LABS: Bacteria Few /hpf; Red Blood Cells, Urine 0-2 /hpf (0-2); Squamous Epithelial Cells Not Seen /hpf (Few); White Blood Cells, Urine Not Seen /hpf (0-5)
[2019-02-01 19:22] LABS: Amorphous Light (0-Heavy)
--- NOTE | 2019-02-01 20:39 | NUR ---
ASSUMED CARE OF PT AT 1900. PT PRESENTS IN BED. WEARING BIPAP AND TOLERATING WELL. REPORT RECEIVED. PT HAS LOW GRADE TEMP WITH MAX AT 101.5 PER HELTON TEMP PROBE. CURRENTLY BACK TO 101.1 WITHOUT INTERVENTION. WILL CLOSELY MONITOR. WILL REVIEW CHART AND PLAN OF CARE FOR THIS PT.
[2019-02-01 21:13] LABS: Adenovirus Not Detected (NOT DETECT); Bordetella pertussis Not Detected (NOT DETECT); Chlamydophila pneumoniae Not Detected (NOT DETECT); Coronavirus 229E Not Detected (NOT DETECT); Coronavirus HKU1 Not Detected (NOT DETECT); Coronavirus NL63 Not Detected (NOT DETECT); Coronavirus OC43 Not Detected (NOT DETECT); Human Metapneumovirus Not Detected (NOT DETECT); Human Rhinovirus/Enterovirus Not Detected (NOT DETECT); Influenza A Not Detected (NOT DETECT); Influenza A/2009-H1 Not Detected (NOT DETECT); Influenza A/H1 Not Detected (NOT DETECT); Influenza A/H3 Detected (NOT DETECT); Influenza B Not Detected (NOT DETECT); Mycoplasma pneumoniae Not Detected (NOT DETECT); Parainfluenza Virus 1 Not Detected (NOT DETECT); Parainfluenza Virus 2 Not Detected (NOT DETECT); Parainfluenza Virus 3 Not Detected (NOT DETECT); Parainfluenza Virus 4 Not Detected (NOT DETECT); Respiratory Syncytial Virus Not Detected (NOT DETECT)
[2019-02-01] MEDS ORDERED: DULO60 PO (22:49)
[2019-02-01] MEDS ORDERED: TRELEGY ELLIPT1 EACH INH (22:53)
[2019-02-01] MEDS ORDERED: MULTI VITAMIN1 EACH PO (22:54)
--- NOTE | 2019-02-01 23:51 | NUR ---
PT'S DAUGHTER COMES IN TO SEE PT. IS ABLE TO ASSIST WITH THE ADMISSION QUESTIONARE WELL UPDATE MEDICATION REC. DID MEDICATE PT WITH TYLENOL FOR LOW GRADE FEVER WELL TAMIFLU FOR POSITIVE INFLUENZA A RESULTS. PT ABLE TO TAKE WATER AND PILLS WITHOUT COUGH. PT ABLE TO ANSWER SOME QUESTIONS DURING ADMISSION QUESTIONING. PT WAS PLACED ON 5 LITERS OXYGEN PER NASAL CANNULA DURING SHORT BREAK FROM BIPAP. WHEN O2 REMOVED AND BIPAP BE PLACED BACK ON, PT DID DESATURATE TO 86 PERCENT. PT CURRENTLY WEARING BIPAP WITHOUT TRYING TO REMOVE. WILL CONTINUE TO MONITOR PT.
--- NOTE | 2019-02-02 03:10 | NUR ---
PT RESTING COMFORTABLY IN BED AT THIS TIME. HAS BEEN ABLE TO MAINTAIN > 90 PERCENT SATURATION WITH BIPAP MASK. TOLERATES TURNS IN BED. NO DISTRESS NOTED. WILL CONTINUE TO MONITOR PT.
[2019-02-02 03:41] LABS: Hematocrit 31.8 % (33.0-51.0); Hemoglobin 8.8 g/dL (11.5-16.0); Mean Corpuscular HGB 25.3 pg (26.0-34.0); Mean Corpuscular HGB Conc 27.7 g/dL (31.5-36.5); Mean Platelet Volume 10.3 fL (9.1-12.4); Platelet Count 213 K/mm3 (150-400); RDW Coefficient Variation 14.7 % (11.7-14.2); RDW Standard Deviation 49.5 fL (35.1-46.3); Red Blood Cell Count 3.48 M/mm3 (3.80-5.20); White Blood Cell Count 21.64 K/mm3 (4.00-11.30)
[2019-02-02 03:45] LABS: Mean Corpuscular Volume 91 fL (80-100)
[2019-02-02 03:55] LABS: Anion Gap 5 mmol/L (6-16); Blood Urea Nitrogen 28 mg/dL (8-24); Bun/Creatinine Ratio 39.8 (12.0-20.0); CO2, Blood 37 mmol/L (21-32); Calcium, Blood 8.3 mg/dL (8.5-10.1); Chloride, Blood 102 mmol/L (98-108); Glomerular Filtration Rate >60 (60-); Glucose, Blood 173 mg/dL (70-99); Magnesium, Blood 1.8 mg/dL (1.6-2.4); Potassium, Blood 4.1 mmol/L (3.5-5.5); Sodium, Blood 144 mmol/L (136-145)
[2019-02-02 04:02] LABS: BAND PERCENT MAN 13 % (0-8); BASOPHILS PERCENT MAN 0 % (0-2); EOSINOPHILS PERCENT MAN 0 % (0-6); LYMPHOCYTES ABSOLUTE MAN 0.43 K/mm3 (0.84-5.20); LYMPHOCYTES PERCENT MAN 2 % (21-46); MONOCYTES ABSOLUTE MAN 0.43 K/mm3 (0.16-1.47); MONOCYTES PERCENT MAN 2 % (4-13); NEUTROPHILS ABSOLUTE MAN 20.77 K/mm3 (1.96-9.15); SEG NEUTROPHILS PERCENT MAN 83 % (41-73); TOTAL CELLS COUNTED 100
[2019-02-02 05:33] LABS: PCO2 Arterial 81.7 mmHg (35-45); PO2 Arterial 75.2 mmHg (80-100); pH Blood Arterial 7.29 (7.35-7.45)
--- NOTE | 2019-02-02 06:01 | NUR ---
PT CONTINUES THROUGH THE NIGHT WEARING BIPAP. ABG DONE THIS AM REVEALS ONLY MARGINAL IMPROVEMENT. RT MAKES ADJUSTMENT TO BIPAP SETTINGS ACCORDINGLY. PT TAKES HER PO MEDS THIS AM WITH SIPS OF WATER. NO COUGH. O2 AT 5 L/M DURING MEDICATIONS. PT DESATURATES TO 88 PERCENT. CURRENTLY >90 PERCENT SATURATION WITH BIPAP IN PLACE. PT STILL IS UNABLE TO EXPECTORATE SPUTUM. PT STATES SHE FEELS IT IS TOO THICK FOR HER TO CLEAR. WILL CONTINUE TO MONITOR PT, AND WILL REPORT OFF TO ONCOMING RN.
--- NOTE | 2019-02-02 07:45 | NUR ---
Recieved report from Ketan SUERO. Patient is resting in bed with HOB at 30 degrees. She is wearing BIPAP at 15/5 and 50% FiO2 and sats 94% and tolerating well. She is alert and able to communicate her needs. She has 16Fr Temp fernandes draining to gravity clear yellow urine. Repositioned for comfort. She has 18ga IV in LFA dressing intact and site WNL's and flushed and SL. She also has 24ga IV in RH dressing intact and site WNL's and if flushed and SL. VSS.
--- NOTE | 2019-02-02 09:30 | NUR ---
Dr Saldana has been by as well as Dr Ward and they have set a diet and are allowing breaks from BIPAP. She is still currently on BIPAP at 15/5 and 50% FiO2 and is in the 90%'s. She is able to communicate her needs and denies any need for pain intervention. Repositioned in bed.
[2019-02-02 11:16] LABS: Base Excess Venous 8.1 mmol/L; Bicarbonate Venous 29.2 mmol/L (24.0-30.0); PCO2 Venous 90.5 mmHg (38-42); PO2 Venous 25.2 mmHg (38-42); pH Blood Venous 7.21 (7.34-7.37)
--- NOTE | 2019-02-02 11:28 | NUR ---
VBG back and worse than before and discussed with Dr Ward and RT and increased to 18/8 and 45% FiO2.
--- NOTE | 2019-02-02 13:30 | NUR ---
VBG will be at 1400 for new BIPAP setting and she has family at bedside. VSS. 94% on new BIPAP settings. She has been resting and seems more alert when awakening for care.
[2019-02-02 14:18] LABS: Base Excess Venous 14.7 mmol/L; Bicarbonate Venous 35.8 mmol/L (24.0-30.0); PO2 Venous 38.3 mmHg (38-42); pH Blood Venous 7.33 (7.34-7.37)
--- NOTE | 2019-02-02 15:30 | NUR ---
VBG reading much better and is OK to give small breaks and see how she tolerates any intake. She continues to sat low to mid 90%'s on current setting of 18/8 and 45% FiO2. VSS see EMR. Family still at bedside and sister has called for update.
--- NOTE | 2019-02-02 18:00 | NUR ---
Patient has no current changes and remains on same BIPAP settings and sats low to mid 90%'s. She is able to communicate her needs better with care and only has occassional confused statement.
--- NOTE | 2019-02-02 19:26 | NUR ---
ASSUMED CARE OF PT, REPORT RECEIVED. PT PRESENTS IN BED. WEARING BIPAP 18/8 WITH FIO2 45 PERCENT. PT TOLERATING THIS WELL. BREAK TO OXIMIZER FOR ORAL CARE DONE AT 5 L/M. PT UNFORTUNEATLEY DESATURATES TO 87 PERCENT. IS ABLE TO FOLLOW CONVERSATION WELL. NO COMPLAINTS OF PAIN OR DISTRESS. WILL REVIEW CHART AND PLAN OF CARE FOR THIS PT.
--- NOTE | 2019-02-02 22:17 | NUR ---
HAVE BEEN ABLE TO DECREASE DOPAMINE DOWN TO 1MCG/MCG/MIN. PT MAINTAINING MAP > 60 AT THIS TIME. DOES HAVE OCCASSIONAL LOWER READING SECONDARY TO PT RAISING HIS BLOOD PRESSURE ARM UP HIGHER THAN HEART AT TIMES. PT WAS ABLE TO TAKE PO MEDS WITH APPLESAUCE AND WITH NECTAR THICK FLUIDS. PT HAD HIS NASAL CANNULA ON HIS CHEEK AND NOT IN NARES UPON TAKING OVER CARE AT 1915. HAVE JUST MONITORED HIS OXYGEN SATURATIONS DURING THIS TIME. HAS MAINTAINED > 93 PERCENT SATURATIONS ON ROOM AIR. HAVE REMOVED NASAL CANNULA. WILL CONTINUE TO MONITOR FOR ABILITY TO TITRATE DOPAMINE TO OFF.
--- NOTE | 2019-02-02 22:22 | NUR ---
PT HAS BEEN ABLE TO TAKE HER HS MEDS THIS NIGHT WITH ROOT BEER, AND APPLESAUCE. HAVE GIVEN PT BREAK FROM BIPAP TO 7 LITERS PER MINUTE O2 PER OXIMIZER. WILL CONTINUE TO MONITOR. PT HAS LOW GRADE FEVER AGAIN THIS EVENING. DID COMPLAIN OF HEADACHE. MEDICATED PT WITH TYLENOL FOR HEADACHE. PENDING RESULTS.
--- NOTE | 2019-02-03 01:01 | NUR ---
PT STATES THAT TYLENOL AFFECTIVE TO RELIEVE HER HEADACHE. HAS BEEN TOLERATING BIPAP WELL AT HIGHER SETTINGS. MAINTAINS > 90 PERCENT SATURATIONS WITH 45 PERCENT FIO2. DOES TURN HERSELF IN BED SOME. ASSISTANCE NEEDED AT TIMES. WILL CONTINUE TO MONITOR.
[2019-02-03 04:32] LABS: Base Excess Venous 14.2 mmol/L; Bicarbonate Venous 36.4 mmol/L (24.0-30.0); PCO2 Venous 57.7 mmHg (38-42); PO2 Venous 90.3 mmHg (38-42); pH Blood Venous 7.43 (7.34-7.37)
[2019-02-03 04:40] LABS: BASOPHILS ABSOLUTE AUTO 0.02 K/mm3 (0.00-0.23); BASOPHILS PERCENT AUTO 0 % (0-2); EOSINOPHILS PERCENT AUTO 0 % (0-6); Hematocrit 29.8 % (33.0-51.0); Hemoglobin 8.4 g/dL (11.5-16.0); IMMATURE GRAN ABSOLUTE AUTO 0.11 K/mm3 (0.00-0.10); IMMATURE GRAN PERCENT AUTO 1 % (0-1); LYMPHOCYTES ABSOLUTE AUTO 0.28 K/mm3 (0.84-5.20); LYMPHOCYTES PERCENT AUTO 2 % (21-46); MONOCYTES ABSOLUTE AUTO 0.42 K/mm3 (0.16-1.47); MONOCYTES PERCENT AUTO 2 % (4-13); Mean Corpuscular HGB 25.5 pg (26.0-34.0); Mean Corpuscular HGB Conc 28.2 g/dL (31.5-36.5); Mean Corpuscular Volume 91 fL (80-100); Mean Platelet Volume 10.2 fL (9.1-12.4); NEUTROPHILS ABSOLUTE AUTO 17.59 K/mm3 (1.96-9.15); NEUTROPHILS PERCENT AUTO 96 % (41-73); Platelet Count 226 K/mm3 (150-400); RDW Coefficient Variation 15.1 % (11.7-14.2); RDW Standard Deviation 50.6 fL (35.1-46.3); Red Blood Cell Count 3.29 M/mm3 (3.80-5.20); White Blood Cell Count 18.42 K/mm3 (4.00-11.30)
[2019-02-03 04:57] LABS: Albumin, Blood 2.8 g/dL (3.4-5.0); Anion Gap 5 mmol/L (6-16); Blood Urea Nitrogen 31 mg/dL (8-24); Bun/Creatinine Ratio 50.7 (12.0-20.0); CO2, Blood 36 mmol/L (21-32); Calcium, Blood 8.5 mg/dL (8.5-10.1); Chloride, Blood 101 mmol/L (98-108); Creatinine, Blood 0.61 mg/dL (0.40-1.00); Glomerular Filtration Rate >60 (60-); Glucose, Blood 136 mg/dL (70-99); Phosphorus, Blood 2.2 mg/dL (2.5-4.9); Potassium, Blood 3.6 mmol/L (3.5-5.5); Sodium, Blood 142 mmol/L (136-145)
[2019-02-03 05:55] LABS: BAND PERCENT MAN 6 % (0-8); BASOPHILS PERCENT MAN 0 % (0-2); EOSINOPHILS PERCENT MAN 0 % (0-6); LYMPHOCYTES ABSOLUTE MAN 0.18 K/mm3 (0.84-5.20); LYMPHOCYTES PERCENT MAN 1 % (21-46); MONOCYTES PERCENT MAN 0 % (4-13); NEUTROPHILS ABSOLUTE MAN 18.23 K/mm3 (1.96-9.15); SEG NEUTROPHILS PERCENT MAN 93 % (41-73); TOTAL CELLS COUNTED 100
--- NOTE | 2019-02-03 06:57 | NUR ---
PT HAS BEEN COMPLIANT WITH WEARING BIPAP THROUGHOUT THE NIGHT. HAVE GIVEN SHORT BREAKS TO OXIMIZER AT 7 L/M. HAS NO COMPLAINTS OF HEADACHE AFTER RECEIVING APPAP EARLIER. PT HAS BEEN ABLE TO MOVE ABOUT SOME IN BED AND DOES USE SOME ASSIST WITH PILLOWS. PT'S MENTATION HAS BEEN IMPROVING. WILL CONTINUE TO MONITOR PT, AND WILL REPORT OFF TO ONCOMING RN.
--- NOTE | 2019-02-03 08:09 | NUR ---
Recieved report from Ketan SEURO. Patient sitting up in bed on Oximizer at 7L O2 and sats mid 90%'s. She is alert and oriented and is able to currently communicate her needs. She has 18gaIV in LFA dressing intact and site WNL's and is flushed and SL'd and 24ga IV in RH dressing intact and site WNL's flushed and SL'd. She has 16Fr Temp fernandes draining to gravity clear yellow urine. She is currently sitting up in bed eating breakfast.
[2019-02-03 08:42] LABS: Percent Saturation 2.7 % (15.0-50.0)
--- NOTE | 2019-02-03 10:04 | NUR ---
Placed patient back to bed and she is back on BIPAP and doing CPT vest. Her settings are 18/8 and 45% FiO2 and sats mid 90%. She is hypertensive and has been started on her metoprolol home dose.
--- NOTE | 2019-02-03 12:16 | NUR ---
Patient back in bed and Dr Ward was in and changed BIPAP settings to 12/6 and patient tolerating well, her sats continue low to mid 90%'s. She is currently taking a break for lunch and will go right back after she eats and is on oximizer will taking breaks blanca sats.
--- NOTE | 2019-02-03 14:30 | NUR ---
Patient resting in bed on BIPAP 10/19 and sats well in the mid 90%'s. She has been less hypertensive since Metoprolol 75mg. VSS see EMR. Patient able to communicate her needs and tolerates care well.
--- NOTE | 2019-02-03 18:00 | NUR ---
Gave report to Giacomo SUERO and patient will be moving to PCU. She has been taking a break off BIPAP and is currently and sats >90%. She ambulated to wheelchair with one assist and was transferred to PCU 7. All belonging went with her and dinner tray as well. Giacomo in room with patient on arrival. Took BIPAP and CPT machine over to PCU 7.
[2019-02-04 03:56] LABS: BASOPHILS ABSOLUTE AUTO 0.01 K/mm3 (0.00-0.23); BASOPHILS PERCENT AUTO 0 % (0-2); EOSINOPHILS PERCENT AUTO 0 % (0-6); Hematocrit 31.5 % (33.0-51.0); Hemoglobin 8.8 g/dL (11.5-16.0); IMMATURE GRAN PERCENT AUTO 1 % (0-1); LYMPHOCYTES ABSOLUTE AUTO 0.31 K/mm3 (0.84-5.20); LYMPHOCYTES PERCENT AUTO 2 % (21-46); MONOCYTES PERCENT AUTO 2 % (4-13); Mean Corpuscular HGB 24.9 pg (26.0-34.0); Mean Corpuscular HGB Conc 27.9 g/dL (31.5-36.5); Mean Corpuscular Volume 89 fL (80-100); Mean Platelet Volume 10.3 fL (9.1-12.4); NEUTROPHILS ABSOLUTE AUTO 16.91 K/mm3 (1.96-9.15); NEUTROPHILS PERCENT AUTO 95 % (41-73); Platelet Count 240 K/mm3 (150-400); RDW Coefficient Variation 14.9 % (11.7-14.2); RDW Standard Deviation 49.2 fL (35.1-46.3); Red Blood Cell Count 3.54 M/mm3 (3.80-5.20); White Blood Cell Count 17.73 K/mm3 (4.00-11.30)
[2019-02-04 04:14] LABS: Albumin, Blood 2.5 g/dL (3.4-5.0); Anion Gap 4 mmol/L (6-16); Blood Urea Nitrogen 23 mg/dL (8-24); Bun/Creatinine Ratio 38.3 (12.0-20.0); CO2, Blood 36 mmol/L (21-32); Calcium, Blood 8.6 mg/dL (8.5-10.1); Chloride, Blood 101 mmol/L (98-108); Glomerular Filtration Rate >60 (60-); Glucose, Blood 130 mg/dL (70-99); Phosphorus, Blood 2.4 mg/dL (2.5-4.9); Potassium, Blood 4.1 mmol/L (3.5-5.5); Sodium, Blood 141 mmol/L (136-145)
--- NOTE | 2019-02-04 07:33 | NUR ---
SHIFT SUMMARY PATIENT PLEASENT AND COOPERATIVE THROUGHOUT THE NIGHT. PATIENT APPEARED TO NAP ON AND OFF THROUGHOUT THE NIGHT. PATIENT USED THE BIPAP SEVERAL TIMES LAST NIGHT FOR SEVERAL HOURS EACH TIME. PATIENT ON 6L VIA OXYMIZER WHEN OFF BIPAP. PATIENT APPEARED TO MOVE HERSLEF AROUND WELL IN BED. VITAL SIGNS CHARTED. REPORT GIVEN TO ONCOMING RN.
--- NOTE | 2019-02-04 14:15 | NUR ---
PT AND I HAVE DISCUSSED HER STRENGTH AND SUPPLEMENTAL OXYGEN USE. PT STATES BEING WILLING TO GET UP AND OUT OF BED INTO CHAIR TODAY AND HAS ASKED THIS NURSE WOULD HELP HER GET BACK TO HER BASELINE 02 USE. PATIENT HAS TOLERATED LOWERING FROM 6L TO 5L OXYMIZER. PT DENIES FEELING SOB OR THE NEED FOR MORE 02, SATS >92%. ONCE PT HAS BEEN IN CHAIR AND TOLERATES IT WELL, WILL ATTEMPT TO SEE OF PT CAN TOLERATE 4L. PT HAS BEEN EDUCATED ON USING THE CALL LIGHT IF FEELING SOB, LIGHT HEADED, ETC.
--- NOTE | 2019-02-04 16:44 | NUR ---
END OF SHIFT SUMMARY ASSUMED CARE OF PT @0700. PTS LUNG SOUNDS HAVE GONE FROM HAVING CRACKLES IN THE UPPER LOBES AND COARSE T/O TO JUST BEING COARSE T/O. VS HAVE REMAINED STABLE ALL SHIFT. PT HAS MCKENNA UP TO CHAIR WITH LITTLE ASSISTANCE. PT HAS BEEN TITRATED FROM 6L OXYMIZER TO 4L OXYMIZER, O2 SATS HAVE NOT DROPPED BELOW 90%, EVEN WHEN AMBULATING. PT HAS HAD CPT AND TOLERATED IT WELL. THIS NURSE TO [facility] HELTON BEFORE SHIFT CHANGE. PT HAS NOT REQUIRED BIPAP WHOLE SHIFT. WILL CONTINUE TO MONITOR PT UNTIL SHIFT CHANGE.
[2019-02-05 03:46] LABS: BASOPHILS ABSOLUTE AUTO 0.01 K/mm3 (0.00-0.23); BASOPHILS PERCENT AUTO 0 % (0-2); EOSINOPHILS PERCENT AUTO 0 % (0-6); Hematocrit 34.8 % (33.0-51.0); Hemoglobin 9.6 g/dL (11.5-16.0); IMMATURE GRAN ABSOLUTE AUTO 0.05 K/mm3 (0.00-0.10); IMMATURE GRAN PERCENT AUTO 0 % (0-1); LYMPHOCYTES ABSOLUTE AUTO 0.23 K/mm3 (0.84-5.20); LYMPHOCYTES PERCENT AUTO 2 % (21-46); MONOCYTES ABSOLUTE AUTO 0.18 K/mm3 (0.16-1.47); MONOCYTES PERCENT AUTO 2 % (4-13); Mean Corpuscular HGB 25.4 pg (26.0-34.0); Mean Corpuscular HGB Conc 27.6 g/dL (31.5-36.5); Mean Platelet Volume 10.3 fL (9.1-12.4); NEUTROPHILS ABSOLUTE AUTO 10.77 K/mm3 (1.96-9.15); NEUTROPHILS PERCENT AUTO 96 % (41-73); Platelet Count 224 K/mm3 (150-400); RDW Coefficient Variation 14.7 % (11.7-14.2); RDW Standard Deviation 49.4 fL (35.1-46.3); Red Blood Cell Count 3.78 M/mm3 (3.80-5.20); White Blood Cell Count 11.24 K/mm3 (4.00-11.30)
[2019-02-05 03:47] LABS: Mean Corpuscular Volume 92 fL (80-100)
[2019-02-05 04:05] LABS: Albumin, Blood 2.5 g/dL (3.4-5.0); Anion Gap 5 mmol/L (6-16); Blood Urea Nitrogen 24 mg/dL (8-24); Bun/Creatinine Ratio 40.2 (12.0-20.0); CO2, Blood 36 mmol/L (21-32); Calcium, Blood 8.6 mg/dL (8.5-10.1); Chloride, Blood 100 mmol/L (98-108); Glomerular Filtration Rate >60 (60-); Glucose, Blood 146 mg/dL (70-99); Phosphorus, Blood 2.9 mg/dL (2.5-4.9); Potassium, Blood 4.1 mmol/L (3.5-5.5); Sodium, Blood 141 mmol/L (136-145)
--- NOTE | 2019-02-05 07:12 | NUR ---
SHIFT SUMMARY PATIENT PLEASENT AND COOPERATIVE THROUGHOUT THE NIGHT. PATIENT ABLE TO GET UP TO THE BSC TO VOID, PATIENT'S O2 STATS DID DROP INTO THE 80'S BUT PATIENT APPEARED TO RECOVER QUICKLY. PATIENT APPEARED TO NAP ON AND OFF THROUGHOUT THE NIGHT. PATIENT DID REFUSE HER BIPAP LAST NIGHT SINCE HER NOSE HURT. GEL NOSE PAD OFFERED BUT PATIENT SAID IT DID NOT HELP AND CONTINUED TO REFUSE BIPAP. PATIENT MEDICATED FOR A HEADACHE PER EMAR. REPORT GIVEN TO ONCOMING PIO.
--- NOTE | 2019-02-05 17:52 | NUR ---
END OF SHIFT SUMMARY ASSUMED CARE OF PT @0700. PT ON 4L NC, SATS >92%. PT TALKED TO NURSE ABOUT BASELINE OF 3L. PLAN TO GET PT DOWN TO 3L. ATTEMPTED EARLIER BUT PT STATED HAVING DIFFICULTY WITH 3L. PT TITRATED BACK UP TO 4L. PT HAS BEEN TITRATED DOWN TO 3L AGAIN, AWAITING TO SEE HOW PT TOLERATES THIS. LUNG SOUNDS HAVE REMAINED CRACKLE FREE, COARSE T/O. PT MADE MED STATUS NO TELE, AWAITING BED ON MEDICAL FLOOR. THIS NURSE TO TAKE MANUAL BP DUE TO HIGH BP'S VIA CAPSULE BP CUFF. PT HAS BEEN UP TO CHAIR AND BSC MULTIPLE TIMES THIS SHIFT, TOLERATED VERY WELL. HAVE HAD DIFFICULTY WITH GETTING SPO2 READINGS DUE TO PVD. WILL CONTINUE TO MONITOR PT UNTIL SHIFT CHANGE.
--- NOTE | 2019-02-05 19:58 | NUR ---
1945 ASSUMED CARE OF PATIENT ASSESSMENT DONE SEE [facility] FOR FULL ASSESSMENT. RESTING COMFORTABLY AT THIS TIME. NO COMPAINTS IN GOOD SPIRTS. CALL LIGHT IN REACH TAUGHT IMPORTANCE OF CALLING BEFORE GETTING OUT OF BED, TABLE AT BEDSIDE AND CLEANED. WILL CONTINUE TO MONITOR.
--- NOTE | 2019-02-06 05:11 | NUR ---
PATIENT RESTED QUIETLY T\O NIGHT, BP STILL IN 180'S, PRN HYDRALAZINE GIVEN, CALL LIGHT IN REACH, ROOM TIDIED UP AND WILL CONTINUE TO MONITOR TILL DAY SHIFT HANDOFF
[2019-02-06] MEDS ORDERED: ALBU2.5V5 NEB (10:59)
[2019-02-06] MEDS ORDERED: Prednisone10 MG PO (11:02)
--- NOTE | 2019-02-06 12:29 | NUR ---
ASSUMED CARE OF PT 0700. PT RESTING IN BED. 3L NC, 02 SATS AROUND 90-92%. PT BREATHING UNLABORED AND EVEN. LUNG SOUNDS COARSE T/O AND VERY DIM IN BASES. PT STATES ANXIETY HAS SUBSIDED THIS MORNING. DR SOTO IN TO SEE PT, STATES PT IS LOOKING MUCH BETTER. DC ORDERS PLACED FOR PT, PT ALERTED. PT WORKING ON GETTING RIDE HOME. CHARGE NURSE WORKING ON DC PACKET. PT STATES NOT BEING ABLE TO GET RIDE UNTIL AROUND [id number]. THIS NURSE TO CONTINUE TO MONITOR PT, GIVE 1500 IV ABX, AND DC PT UPON ARRIVAL OF RIDE.
== END 2019-02-06 18:18 | disposition home or self-care (01) | DRG 193 ==
LOC: ER 12:27 → ICUE 12:28 → ICUW 12:28 → ICUE 16:17 → PCU 02-03 18:25
PROVIDERS: Emergency Medicine; Family Medicine; Internal Medicine Pulmonary Disease; Nurse Practitioner Acute Care; ADMIT Hospitalist
PROC: 5A09457 Assistance with Respiratory Ventilation, 24-96 Consecutive Hours, Continuous Positive Airway Pressure (ICD-10-PCS; principal; 2019-02-01)
DX: J10.1 Influenza due to other identified influenza virus with other respiratory manifestations (principal); J96.21 Acute and chronic respiratory failure with hypoxia; G92 Toxic encephalopathy; J96.22 Acute and chronic respiratory failure with hypercapnia; J44.0 Chronic obstructive pulmonary disease with (acute) lower respiratory infection; J44.1 Chronic obstructive pulmonary disease with (acute) exacerbation; Z99.81 Dependence on supplemental oxygen; Z79.52 Long term (current) use of systemic steroids; D63.8 Anemia in other chronic diseases classified elsewhere; I73.9 Peripheral vascular disease, unspecified; M79.2 Neuralgia and neuritis, unspecified; E78.5 Hyperlipidemia, unspecified; K21.9 Gastro-esophageal reflux disease without esophagitis; F32.9 Major depressive disorder, single episode, unspecified; I10 Essential (primary) hypertension; F41.0 Panic disorder [episodic paroxysmal anxiety]; Z87.891 Personal history of nicotine dependence; Z91.19 Patient's noncompliance with other medical treatment and regimen; Z91.81 History of falling
CPT/HCPCS: 36415; 36600; 51702; 70450; 71045; 80048; 80053; 80069; 81001; 82607; 82728; 82746; 82803; 83540; 83550; 83735; 84145; 84484; 85025; 87070; 87081; 87147; 87486; 87581; 87633; 87798; 93005; 93010; 93922; 94640; 94660; 94667; 94762; 96374; 96375; 99285-25; J0360; J0456; J1650; J2930; J7050

== ENCOUNTER 2019-03-26 23:17 | Inpatient (IN) | payer MEDICARE ==
[~2019-03-26] VITALS: Ht 167.6 cm; Wt 65.7 kg
[~2019-03-26 23:17] MED LIST changes: +ALBU2.5V5 NEB; +ALBU90OI61 INH; +ARIPIPRAZOLE5 MG PO; +Abilify5 MG PO; +Aspirin EC81 MG PO; +Budeprion Xl300 MG PO; +GABA300 PO; +Lopressor 25 mg25 MG PO; +Lovastatin20 MG PO; +MONT10T PO; +PRED5 PO; +Prednisone10 MG PO
[2019-03-26 23:49] LABS: PO2 Arterial 55.9 mmHg (80-100); pH Blood Arterial 7.37 (7.35-7.45)
[2019-03-26 23:53] LABS: BASOPHILS ABSOLUTE AUTO 0.03 K/mm3 (0.00-0.23); BASOPHILS PERCENT AUTO 0 % (0-2); EOSINOPHILS ABSOLUTE AUTO 0.11 K/mm3 (0.00-0.68); EOSINOPHILS PERCENT AUTO 1 % (0-6); Hemoglobin 9.7 g/dL (11.5-16.0); IMMATURE GRAN ABSOLUTE AUTO 0.04 K/mm3 (0.00-0.10); IMMATURE GRAN PERCENT AUTO 0 % (0-1); LYMPHOCYTES ABSOLUTE AUTO 0.95 K/mm3 (0.84-5.20); LYMPHOCYTES PERCENT AUTO 9 % (21-46); MONOCYTES ABSOLUTE AUTO 0.52 K/mm3 (0.16-1.47); MONOCYTES PERCENT AUTO 5 % (4-13); Mean Corpuscular HGB 26.4 pg (26.0-34.0); Mean Corpuscular HGB Conc 28.5 g/dL (31.5-36.5); Mean Corpuscular Volume 92 fL (80-100); Mean Platelet Volume 9.6 fL (9.1-12.4); NEUTROPHILS ABSOLUTE AUTO 9.33 K/mm3 (1.96-9.15); NEUTROPHILS PERCENT AUTO 85 % (41-73); Platelet Count 270 K/mm3 (150-400); RDW Coefficient Variation 16.9 % (11.7-14.2); RDW Standard Deviation 56.4 fL (35.1-46.3); Red Blood Cell Count 3.68 M/mm3 (3.80-5.20); White Blood Cell Count 10.98 K/mm3 (4.00-11.30)
[2019-03-27 00:07] LABS: Alanine Aminotransfer (ALT/SGP 14 U/L (12-78); Albumin, Blood 3.4 g/dL (3.4-5.0); Albumin/Globulin Ratio 0.8 (0.8-1.8); Alk Phos 87 U/L (50-136); Anion Gap 4 mmol/L (6-16); Aspartate Aminotrans (AST/SGOT 15 U/L (12-37); Bilirubin, Total 0.2 mg/dL (0.1-1.0); Blood Urea Nitrogen 20 mg/dL (8-24); Bun/Creatinine Ratio 22.3 (12.0-20.0); CO2, Blood 38 mmol/L (21-32); Calcium, Blood 8.9 mg/dL (8.5-10.1); Chloride, Blood 100 mmol/L (98-108); Glomerular Filtration Rate >60 (60-); Glucose, Blood 113 mg/dL (70-99); Potassium, Blood 4.1 mmol/L (3.5-5.5); Sodium, Blood 142 mmol/L (136-145); Total Protein, Blood 7.4 g/dL (6.4-8.2); Troponin I <0.015 ng/mL (0.000-0.040)
--- NOTE | 2019-03-27 02:58 | NUR ---
Pt to PCU05 at approx 0250 by vivian accompanied by Josselin, RN from ED. Pt with VSS, 87% on 5 L NC. Switching pt to 5L oxymyzer. Up to 92% on 5L Oxy. Breathing easy, unlabored. Pt denies chest pain or pressure, denies SOB.
[2019-03-27 04:13] LABS: Hematocrit 33.1 % (33.0-51.0); Hemoglobin 9.4 g/dL (11.5-16.0); Mean Corpuscular HGB Conc 28.4 g/dL (31.5-36.5); Mean Corpuscular Volume 92 fL (80-100); Mean Platelet Volume 9.7 fL (9.1-12.4); Platelet Count 248 K/mm3 (150-400); RDW Coefficient Variation 16.9 % (11.7-14.2); Red Blood Cell Count 3.61 M/mm3 (3.80-5.20); White Blood Cell Count 8.63 K/mm3 (4.00-11.30)
[2019-03-27 04:31] LABS: Alanine Aminotransfer (ALT/SGP 13 U/L (12-78); Albumin, Blood 3.2 g/dL (3.4-5.0); Albumin/Globulin Ratio 0.9 (0.8-1.8); Alk Phos 73 U/L (50-136); Anion Gap 4 mmol/L (6-16); Aspartate Aminotrans (AST/SGOT 14 U/L (12-37); Bilirubin, Total 0.3 mg/dL (0.1-1.0); Blood Urea Nitrogen 20 mg/dL (8-24); Bun/Creatinine Ratio 25.6 (12.0-20.0); CO2, Blood 37 mmol/L (21-32); Chloride, Blood 101 mmol/L (98-108); Creatinine, Blood 0.78 mg/dL (0.40-1.00); Globulin, Blood 3.6 g/dL (2.2-4.0); Glomerular Filtration Rate >60 (60-); Glucose, Blood 170 mg/dL (70-99); Potassium, Blood 3.9 mmol/L (3.5-5.5); Sodium, Blood 142 mmol/L (136-145); Total Protein, Blood 6.8 g/dL (6.4-8.2)
--- NOTE | 2019-03-27 04:51 | NUR ---
Transfer/Shift summary Pt to unit at approx 0300. Breathing easy, unlabored, on 5L oxymyzer currently sleeping. Pt with VSS and no apparent sign of distress. Pt is a&o, calls appropriately, makes needs known. Only complaint is of headache, denies need for pain medication at this time. Will continue to monitor. Overall, pt tolerated transfer well, is an accurate historian, calm and cooperative. Skin overall is very dry and fragile. Lotion applied. Lungs are coarse throughout. No sign of altered mentation. bsc with 1 per assist. Call light in reach, bed in low and locked position. Will continue to monitor and update as appropriate. See admission assessment for detailed assessment.
[2019-03-27 05:25] LABS: Adenovirus Not Detected (NOT DETECT); Bordetella pertussis Not Detected (NOT DETECT); Chlamydophila pneumoniae Not Detected (NOT DETECT); Coronavirus 229E Not Detected (NOT DETECT); Coronavirus HKU1 Not Detected (NOT DETECT); Coronavirus NL63 Not Detected (NOT DETECT); Coronavirus OC43 Not Detected (NOT DETECT); Human Metapneumovirus Not Detected (NOT DETECT); Human Rhinovirus/Enterovirus Not Detected (NOT DETECT); Influenza A Not Detected (NOT DETECT); Influenza A/2009-H1 Not Detected (NOT DETECT); Influenza A/H1 Not Detected (NOT DETECT); Influenza A/H3 Not Detected (NOT DETECT); Influenza B Not Detected (NOT DETECT); Mycoplasma pneumoniae Not Detected (NOT DETECT); Parainfluenza Virus 1 Not Detected (NOT DETECT); Parainfluenza Virus 2 Not Detected (NOT DETECT); Parainfluenza Virus 3 Not Detected (NOT DETECT); Parainfluenza Virus 4 Not Detected (NOT DETECT); Respiratory Syncytial Virus Not Detected (NOT DETECT)
--- NOTE | 2019-03-27 07:30 | NUR ---
INITIAL ASSESSMENT: PT RESTING WITH EYES CLOSED, EASILY AWAKENS WITH VERBAL STIMULI. PT ALERT AND OX3. PT DENIES PAIN AT THIS TIME. HRR, SR WITH BBB PER TELEMETRY. LS WITH AUDUBLE CRACKLES. COARSE T/O. BIOX 96% ON 5L VIA NC, OXYGEN TURNED DOWN TO 4L VIA NC, WILL REASSESS AND ADJUST. BT+. PPP. BLE WITH SOME REDNESS AND TRACE EDEMA. PT HAS SMALL ULCER ON THE BOTTOM OF HER SECOND TOE ON HER RIGHT FOOT, PT STATES THIS IS CHRONIC. VSS, AT THIS TIME. PT DENIES FURTHER NEEDS. WILL CONTINUE TO MONITOR.
--- NOTE | 2019-03-27 08:00 | NUR ---
DR. BENNETT HERE TO SEE THE PATIENT, OXYGEN TITRATED DOWN TO 3L VIA NC. BIOX LOW 90S ON 3L VIA NC, THIS IS PATIENTS HOME OXYGEN DOSE. SEE NEW ORDERS, PT DENIES NEEDS AT THIS TIME. CALL LIGHT IN REACH, WILL CONTINUE TO MONITOR.
--- NOTE | 2019-03-27 15:00 | NUR ---
PT HAS DONE WELL FOR ME THIS SHIFT. PT HAS BEEN RESTING COMFORTABLY. REPORT GIVEN TO KRISTYN PENNY RN. PT TRANSFERRED TO [facility] VIA BED.
--- NOTE | 2019-03-27 15:23 | NUR ---
Assumed care of patient from Petra SUERO from PCU. Patient settled in room with drinks, O2 at 3LPM NC, call light and phone in hand. AO, resting comfortably in bed.
--- NOTE | 2019-03-27 17:17 | NUR ---
Shift Summary AO x 4. Pleasant and cooperative with care. Follow directions appropriately and able to make needs known. 1 p SBA to BSC. Patient states baseline home O2 @ 3LPM NC. No other acute changes this shift. Will continue to monitor until hand off to next RN.
--- NOTE | 2019-03-27 17:59 | NUR ---
STUDENT NURSE HAD PT CARE TODAY, PLEASE REFER TO STUDENT NOTE FOR SHIFT SUMMARY.
--- NOTE | 2019-03-28 07:32 | NUR ---
a+o, 3L via nc, saline locked, able to make needs known, call light in reach, rt treating, walking rounds complete
[2019-03-28] MEDS ORDERED: ALBU90OI6 INH (12:35)
--- NOTE | 2019-03-28 14:01 | NUR ---
discharge PT IS A/O X4, PLEASANT AFFECT. SHE STATE NO SHORTNESS OF BREATH @ REST, STATE FEELING IMPROVED. O2 @ 3L HOME DOSE. DR BENNETT IN TO SEE HER STATE SHE IS READY FOR D/C HOME, PLACE ORDERS. IV D/C INTACT. ORDERS FAXED TO [facility]/REQUEST. D/C INSTRUCT REVIEWED WITH PT, SHE VERBALIZE UNDERSTANDING. STATE HER DAUGHTER & SISTER WILL PROVIDE TRANSPORTATION HOME HOWEVER WILL BE UNAVAIL UNTIL APPROX 5PM. WAITING IN ROOM @ THIS TIME.
--- NOTE | 2019-03-28 16:59 | NUR ---
FAMILY IN FOR TRANSPORTATION HOME APPROX 1700. DAUGHTER CALL R/T D/C QUESTIONS/CONCERNS ADDRESSED. PT PLEASANT/APPRECIATIVE, STATE FEELS READY FOR D/C HOME.
== END 2019-03-28 16:57 | disposition home or self-care (01) | DRG 189 ==
LOC: ER 23:17 → ERHOLD 03-27 00:40 → PCU 03-27 02:42 → MEDS 03-27 15:14 → ENPENDDIS 03-28 10:57 → MEDS 03-28 16:57
PROVIDERS: Emergency Medicine; ADMIT Internal Medicine
PROC: 5A09357 Assistance with Respiratory Ventilation, Less than 24 Consecutive Hours, Continuous Positive Airway Pressure (ICD-10-PCS; principal; 2019-03-27)
DX: J96.21 Acute and chronic respiratory failure with hypoxia (principal); J44.1 Chronic obstructive pulmonary disease with (acute) exacerbation; I50.32 Chronic diastolic (congestive) heart failure; G93.40 Encephalopathy, unspecified; J47.0 Bronchiectasis with acute lower respiratory infection; J96.22 Acute and chronic respiratory failure with hypercapnia; I73.9 Peripheral vascular disease, unspecified; G47.33 Obstructive sleep apnea (adult) (pediatric); I11.0 Hypertensive heart disease with heart failure; Z91.19 Patient's noncompliance with other medical treatment and regimen; Z99.81 Dependence on supplemental oxygen; F32.9 Major depressive disorder, single episode, unspecified; E78.5 Hyperlipidemia, unspecified; F41.9 Anxiety disorder, unspecified; J20.9 Acute bronchitis, unspecified; Z87.891 Personal history of nicotine dependence
CPT/HCPCS: 36415; 36600; 71046; 80053; 82803; 83605; 84484; 85025; 85027; 87486; 87581; 87633; 87798; 93005; 93010; 93922; 94640; 94644; 94667; 94760; 96365; 96366; 96375; 99285-25; J0692; J0713; J1650; J2930

== ENCOUNTER 2019-04-05 15:06 | Inpatient (IN) | payer MEDICARE ==
[~2019-04-05] VITALS: Ht 165.1 cm; Wt 62.8 kg
[~2019-04-05 15:06] MED LIST changes: -ALBU2.5V5 NEB
[2019-04-05 15:59] LABS: BASOPHILS ABSOLUTE AUTO 0.02 K/mm3 (0.00-0.23); BASOPHILS PERCENT AUTO 0 % (0-2); EOSINOPHILS ABSOLUTE AUTO 0.02 K/mm3 (0.00-0.68); EOSINOPHILS PERCENT AUTO 0 % (0-6); Hematocrit 37.4 % (33.0-51.0); Hemoglobin 10.5 g/dL (11.5-16.0); IMMATURE GRAN ABSOLUTE AUTO 0.04 K/mm3 (0.00-0.10); IMMATURE GRAN PERCENT AUTO 0 % (0-1); LYMPHOCYTES ABSOLUTE AUTO 0.87 K/mm3 (0.84-5.20); LYMPHOCYTES PERCENT AUTO 7 % (21-46); MONOCYTES ABSOLUTE AUTO 0.25 K/mm3 (0.16-1.47); MONOCYTES PERCENT AUTO 2 % (4-13); Mean Corpuscular HGB Conc 28.1 g/dL (31.5-36.5); Mean Corpuscular Volume 93 fL (80-100); Mean Platelet Volume 9.4 fL (9.1-12.4); NEUTROPHILS ABSOLUTE AUTO 10.61 K/mm3 (1.96-9.15); NEUTROPHILS PERCENT AUTO 90 % (41-73); Platelet Count 312 K/mm3 (150-400); RDW Coefficient Variation 16.5 % (11.7-14.2); RDW Standard Deviation 56.3 fL (35.1-46.3); Red Blood Cell Count 4.04 M/mm3 (3.80-5.20); White Blood Cell Count 11.81 K/mm3 (4.00-11.30)
[2019-04-05 16:34] LABS: Alanine Aminotransfer (ALT/SGP 17 U/L (12-78); Albumin, Blood 3.4 g/dL (3.4-5.0); Albumin/Globulin Ratio 0.8 (0.8-1.8); Alk Phos 68 U/L (50-136); Anion Gap 3 mmol/L (6-16); Aspartate Aminotrans (AST/SGOT 13 U/L (12-37); Bilirubin, Total 0.4 mg/dL (0.1-1.0); Blood Urea Nitrogen 16 mg/dL (8-24); Bun/Creatinine Ratio 22.5 (12.0-20.0); CO2, Blood 43 mmol/L (21-32); Chloride, Blood 94 mmol/L (98-108); Creatinine, Blood 0.71 mg/dL (0.40-1.00); Glomerular Filtration Rate >60 (60-); Glucose, Blood 108 mg/dL (70-99); Potassium, Blood 4.1 mmol/L (3.5-5.5); Sodium, Blood 140 mmol/L (136-145); Total Protein, Blood 7.4 g/dL (6.4-8.2)
[2019-04-05 16:51] LABS: Base Excess Venous 19.5 mmol/L; Bicarbonate Venous 40.8 mmol/L (24.0-30.0); PCO2 Venous 71.2 mmHg (38-42); PO2 Venous 164 mmHg (38-42)
[2019-04-05] MEDS ORDERED: ALBU2.5V5 NEB (20:17)
[2019-04-05] MEDS ORDERED: GUAI600T33 PO (20:17)
[2019-04-05] MEDS ORDERED: CHOL10002 PO (20:18)
[2019-04-05] MEDS ORDERED: Fruity C250 MG PO (20:20)
[2019-04-05] MEDS ORDERED: CULTURELLE PRO1 EACH PO (20:21)
[2019-04-06 04:57] LABS: Hematocrit 37.2 % (33.0-51.0); Hemoglobin 10.5 g/dL (11.5-16.0); Mean Corpuscular HGB Conc 28.2 g/dL (31.5-36.5); Mean Corpuscular Volume 92 fL (80-100); Mean Platelet Volume 9.7 fL (9.1-12.4); Platelet Count 313 K/mm3 (150-400); RDW Coefficient Variation 16.2 % (11.7-14.2); RDW Standard Deviation 54.9 fL (35.1-46.3); Red Blood Cell Count 4.04 M/mm3 (3.80-5.20); White Blood Cell Count 10.15 K/mm3 (4.00-11.30)
[2019-04-06 05:20] LABS: Anion Gap 2 mmol/L (6-16); Blood Urea Nitrogen 20 mg/dL (8-24); Bun/Creatinine Ratio 27.1 (12.0-20.0); CO2, Blood 41 mmol/L (21-32); Calcium, Blood 9.1 mg/dL (8.5-10.1); Chloride, Blood 93 mmol/L (98-108); Creatinine, Blood 0.74 mg/dL (0.40-1.00); Glomerular Filtration Rate >60 (60-); Glucose, Blood 169 mg/dL (70-99); Potassium, Blood 4.1 mmol/L (3.5-5.5); Sodium, Blood 136 mmol/L (136-145)
[2019-04-06 07:15] LABS: PO2 Arterial 75.8 mmHg (80-100); pH Blood Arterial 7.36 (7.35-7.45)
[2019-04-07 16:08] LABS: PCO2 Arterial 75 mmHg (35-45); PO2 Arterial 60.3 mmHg (80-100); pH Blood Arterial 7.39 (7.35-7.45)
[2019-04-08 04:20] LABS: BASOPHILS ABSOLUTE AUTO 0.03 K/mm3 (0.00-0.23); BASOPHILS PERCENT AUTO 0 % (0-2); EOSINOPHILS PERCENT AUTO 0 % (0-6); Hematocrit 37.7 % (33.0-51.0); Hemoglobin 10.5 g/dL (11.5-16.0); IMMATURE GRAN PERCENT AUTO 1 % (0-1); LYMPHOCYTES ABSOLUTE AUTO 0.32 K/mm3 (0.84-5.20); LYMPHOCYTES PERCENT AUTO 1 % (21-46); MONOCYTES ABSOLUTE AUTO 0.43 K/mm3 (0.16-1.47); MONOCYTES PERCENT AUTO 2 % (4-13); Mean Corpuscular HGB 25.4 pg (26.0-34.0); Mean Corpuscular HGB Conc 27.9 g/dL (31.5-36.5); Mean Corpuscular Volume 91 fL (80-100); Mean Platelet Volume 9.4 fL (9.1-12.4); NEUTROPHILS ABSOLUTE AUTO 24.63 K/mm3 (1.96-9.15); NEUTROPHILS PERCENT AUTO 96 % (41-73); Platelet Count 330 K/mm3 (150-400); RDW Coefficient Variation 16.9 % (11.7-14.2); RDW Standard Deviation 56.3 fL (35.1-46.3); Red Blood Cell Count 4.14 M/mm3 (3.80-5.20); White Blood Cell Count 25.61 K/mm3 (4.00-11.30)
[2019-04-08 04:36] LABS: Anion Gap 1 mmol/L (6-16); Blood Urea Nitrogen 24 mg/dL (8-24); Bun/Creatinine Ratio 38.1 (12.0-20.0); CO2, Blood 44 mmol/L (21-32); Calcium, Blood 9.5 mg/dL (8.5-10.1); Chloride, Blood 93 mmol/L (98-108); Creatinine, Blood 0.63 mg/dL (0.40-1.00); Glomerular Filtration Rate >60 (60-); Glucose, Blood 138 mg/dL (70-99); Potassium, Blood 3.9 mmol/L (3.5-5.5); Sodium, Blood 138 mmol/L (136-145)
[2019-04-09 04:05] LABS: Anion Gap 2 mmol/L (6-16); Blood Urea Nitrogen 26 mg/dL (8-24); Bun/Creatinine Ratio 43.8 (12.0-20.0); CO2, Blood 41 mmol/L (21-32); Calcium, Blood 9.3 mg/dL (8.5-10.1); Chloride, Blood 95 mmol/L (98-108); Creatinine, Blood 0.59 mg/dL (0.40-1.00); Glomerular Filtration Rate >60 (60-); Glucose, Blood 131 mg/dL (70-99); Potassium, Blood 4.3 mmol/L (3.5-5.5); Sodium, Blood 138 mmol/L (136-145)
[2019-04-11 14:38] LABS: PCO2 Arterial 73 mmHg (35-45); PO2 Arterial 60.4 mmHg (80-100); pH Blood Arterial 7.42 (7.35-7.45)
[2019-04-12] MEDS ORDERED: PRED10 PO (09:37)
== END 2019-04-12 16:41 | disposition home or self-care (01) | DRG 189 ==
LOC: ER 15:06 → PCU 19:20 → ER 21:14 → PCU 21:47
PROVIDERS: Internal Medicine; Nurse Practitioner Acute Care; Physician Assistant; ADMIT Hospitalist
PROC: 5A09457 Assistance with Respiratory Ventilation, 24-96 Consecutive Hours, Continuous Positive Airway Pressure (ICD-10-PCS; principal; 2019-04-05)
DX: J96.21 Acute and chronic respiratory failure with hypoxia (principal); J44.1 Chronic obstructive pulmonary disease with (acute) exacerbation; J96.22 Acute and chronic respiratory failure with hypercapnia; F32.9 Major depressive disorder, single episode, unspecified; G47.33 Obstructive sleep apnea (adult) (pediatric); I73.9 Peripheral vascular disease, unspecified; Z91.19 Patient's noncompliance with other medical treatment and regimen; Z99.81 Dependence on supplemental oxygen; I10 Essential (primary) hypertension; E78.5 Hyperlipidemia, unspecified; F41.9 Anxiety disorder, unspecified; Z87.891 Personal history of nicotine dependence
CPT/HCPCS: 36415; 36600; 71045; 71046; 80048; 80053; 82803; 83880; 84145; 85025; 85027; 93005; 93010; 94640; 94660; 94667; 94668; 94760; 94762; 96361; 96365; 98960; 99285-25; J0360; J1650; J2930; J3475; J7120; J7512

== ENCOUNTER 2019-05-07 11:47 | Inpatient (IN) | payer MEDICARE ==
[~2019-05-07] VITALS: Ht 162.6 cm; Wt 73.5 kg
[~2019-05-07 11:47] MED LIST changes: +ALBU2.5V5 NEB; +CULTURELLE PRO1 EACH PO; +Fruity C250 MG PO
[2019-05-07 12:08] LABS: BASOPHILS ABSOLUTE AUTO 0.07 K/mm3 (0.00-0.23); BASOPHILS PERCENT AUTO 1 % (0-2); EOSINOPHILS ABSOLUTE AUTO 0.13 K/mm3 (0.00-0.68); EOSINOPHILS PERCENT AUTO 1 % (0-6); Hematocrit 38.6 % (33.0-51.0); Hemoglobin 10.2 g/dL (11.5-16.0); IMMATURE GRAN ABSOLUTE AUTO 0.36 K/mm3 (0.00-0.10); IMMATURE GRAN PERCENT AUTO 2 % (0-1); LYMPHOCYTES PERCENT AUTO 31 % (21-46); MONOCYTES ABSOLUTE AUTO 0.89 K/mm3 (0.16-1.47); MONOCYTES PERCENT AUTO 6 % (4-13); Mean Corpuscular HGB 26.7 pg (26.0-34.0); Mean Corpuscular HGB Conc 26.4 g/dL (31.5-36.5); Mean Corpuscular Volume 101 fL (80-100); NEUTROPHILS ABSOLUTE AUTO 9.24 K/mm3 (1.96-9.15); NEUTROPHILS PERCENT AUTO 60 % (41-73); NRBC ABSOLUTE 0.04 K/mm3 (0.00-0.02); NRBC Auto 0.3 /100 WBC (0.0-0.2); Platelet Count 298 K/mm3 (150-400); RDW Coefficient Variation 15.6 % (11.7-14.2); RDW Standard Deviation 57.8 fL (35.1-46.3); Red Blood Cell Count 3.82 M/mm3 (3.80-5.20); White Blood Cell Count 15.49 K/mm3 (4.00-11.30)
[2019-05-07 12:14] LABS: PO2 Arterial 425 mmHg (80-100)
[2019-05-07 12:15] LABS: PCO2 Arterial 89.8 mmHg (35-45)
[2019-05-07 12:31] LABS: Alanine Aminotransfer (ALT/SGP 37 U/L (12-78); Albumin, Blood 2.6 g/dL (3.4-5.0); Albumin/Globulin Ratio 0.7 (0.8-1.8); Alk Phos 108 U/L (50-136); Anion Gap 15 mmol/L (6-16); Aspartate Aminotrans (AST/SGOT 70 U/L (12-37); Bilirubin, Total 0.2 mg/dL (0.1-1.0); Blood Urea Nitrogen 21 mg/dL (8-24); CO2, Blood 26 mmol/L (21-32); Chloride, Blood 99 mmol/L (98-108); Creatinine, Blood 1.05 mg/dL (0.40-1.00); Globulin, Blood 3.7 g/dL (2.2-4.0); Glomerular Filtration Rate 49 (60-); Glucose, Blood 233 mg/dL (70-99); Potassium, Blood 4.1 mmol/L (3.5-5.5); Sodium, Blood 140 mmol/L (136-145); Total Protein, Blood 6.3 g/dL (6.4-8.2); Troponin I <0.015 ng/mL (0.000-0.040)
[2019-05-07 13:19] LABS: Bilirubin, Urine Neg (Neg); Blood, Urine Neg (Neg); Glucose Qualitative, Urine Neg (Neg); Ketones, Urine Neg (Neg); Leukocyte Esterase, Urine Neg (Neg); Nitrite, Urine Neg (Neg); Protein, Urine 2+ (Neg); Urobilinogen, Urine NORM (Normal)
[2019-05-07 13:33] LABS: Appearance, Urine Clear (Clear); Color, Urine Yellow (P-Yellow)
[2019-05-07 13:41] LABS: Bacteria Not Seen /hpf; Red Blood Cells, Urine 0-2 /hpf (0-2); Squamous Epithelial Cells Rare /hpf (Few); White Blood Cells, Urine 0-2 /hpf (0-5)
--- NOTE | 2019-05-07 13:51 | NUR ---
PATIENT ARRIVED ICU 13 AT 1340 AFTER REPORT FROM YODIT García RN. PATIENT IS UNRESPONSIVE. ON EPINEPHRINE GTT AT 10 MCG/MIN; AMIODARONE 1 MG/MIN AND PROPOFOL 5 MCG/KG/MIN. STAT ECHO ORDERED BY DR. TELLES. HR BEGAN TO JOSE L DOWN. EPI GTT INCREASED TO 15 MCG/MIN. CODE CART AND FAMILY BROUGHT TO ROOM. DR. TELLES AT BEDSIDE WITH FAMILY. CHAPLAIN VALERIE NOTIFIED AND RESPONDED IMMEDIATELY.
--- NOTE | 2019-05-07 14:03 | NUR ---
8.0 ETT 24 BRETT.
[2019-05-07 14:05] LABS: PCO2 Arterial 65.7 mmHg (35-45); pH Blood Arterial 7.31 (7.35-7.45)
[2019-05-07 14:06] LABS: PO2 Arterial >500 mmHg (80-100)
--- NOTE | 2019-05-07 14:50 | NUR ---
ETT CHANGED TO 23 BRETT BY RT TONNY WITH ASSISTANCE FROM DR. TELLES
--- NOTE | 2019-05-07 15:05 | NUR ---
VISITS DR. TELLES IN AT ADMIT, DR. GTZ IN NOW
[2019-05-07 16:06] LABS: BASOPHILS ABSOLUTE AUTO 0.06 K/mm3 (0.00-0.23); BASOPHILS PERCENT AUTO 0 % (0-2); EOSINOPHILS PERCENT AUTO 0 % (0-6); Hematocrit 37.4 % (33.0-51.0); Hemoglobin 10.4 g/dL (11.5-16.0); IMMATURE GRAN ABSOLUTE AUTO 0.18 K/mm3 (0.00-0.10); IMMATURE GRAN PERCENT AUTO 1 % (0-1); LYMPHOCYTES ABSOLUTE AUTO 0.79 K/mm3 (0.84-5.20); LYMPHOCYTES PERCENT AUTO 4 % (21-46); MONOCYTES ABSOLUTE AUTO 0.58 K/mm3 (0.16-1.47); MONOCYTES PERCENT AUTO 3 % (4-13); Mean Corpuscular HGB 26.7 pg (26.0-34.0); Mean Corpuscular HGB Conc 27.8 g/dL (31.5-36.5); NEUTROPHILS ABSOLUTE AUTO 19.71 K/mm3 (1.96-9.15); NEUTROPHILS PERCENT AUTO 93 % (41-73); Platelet Count 323 K/mm3 (150-400); RDW Coefficient Variation 15.5 % (11.7-14.2); RDW Standard Deviation 54.7 fL (35.1-46.3); Red Blood Cell Count 3.89 M/mm3 (3.80-5.20); White Blood Cell Count 21.32 K/mm3 (4.00-11.30)
[2019-05-07 16:21] LABS: Mean Corpuscular Volume 96 fL (80-100)
[2019-05-07 16:26] LABS: Bun/Creatinine Ratio 21.3 (12.0-20.0); Calcium, Blood 8.9 mg/dL (8.5-10.1); Creatinine, Blood 1.08 mg/dL (0.40-1.00); Potassium, Blood 3.8 mmol/L (3.5-5.5)
--- NOTE | 2019-05-07 16:41 | NUR ---
[facility] inital visit: Per RN request, I met with this family to offer support and guidence. I met pt and family last time she was in ED. Dtr, Collette is having a difficult time deciding what to do. I was present in room when physician explained, in detail, pt's very poor prognosis. Collette is trying to be faithful to her mom's request for all medical interventions. even though, pt is wildly non-compliant with medical interventions while she is home. I gently explained to Collette that,even though her mom wanted "everything," it appears her body has had enough. Collette appeared emotionally paralyzed and is quite tearful. Pt's grand-daughter, Kassi, is brian present. she is an RT here and seems to understand dire prognosis. Pt's sister, Kirstie, is also present, and she too appears to be leaning towards allowing pt a natural, peaceful passing. Pt's mom is alive and doing "fairly well" at 89. However, all agree "this would be too much for her to see." All family in room seem to be deferring to dtr, Collette.I suspect, if pt codes again, family may change mind about continuing interventions if they witness what "all interventions" entail. I have stayed close to ICU for this reason. Pt and family non-protestant. I will remain available.
--- NOTE | 2019-05-07 17:08 | NUR ---
CALLED DR. TELLES WITH CRITICAL LACTIC RESULT. ORDERS FOR 2L BOLUS NS
--- NOTE | 2019-05-07 18:34 | NUR ---
EPINEPHRINE GTT CONTINUES AT 15 MCG/MIN. AMIODARONE AT 1 MG/HR. NS BOLUS X2. 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 CT OF HEAD ORDERED BUT NOT COMPLETED NOT STABLE ENOUGH
--- NOTE | 2019-05-07 19:15 | NUR ---
REPORT TO PIO LORENZANA
--- NOTE | 2019-05-07 19:30 | NUR ---
ASSESSMENT/ASSUMED CARE PT INTUBATED AND ON [facility] VENT. VENT SETTINGS AC 24 TV 350 PEEP 5 FIO2 45%. LUNGS WITH EXP WHEEZES AND DECREASED IN THE BASES. HEART RATE REGULAR. BP STABLE ON EPI GTT AT 15 MCQ/MIN AND AMIODARONE AT 1 MG/MIN. BT+ HYPOACTIVE. OG CLAMPED. PT UNRESPONSIVE TO PAINFUL STIMULI. PUPILS PIN POINT AND NONREACTIVE. HELTON CATH PATENT DRAINING CLEAR DARK YELLOW URINE. IV 18G TO RIGHT AC SALINE LOCKED, SITE CLEAR. IV 22G TO LEFT HAND SALINE LOCKED, SITE CLEAR. IV 18G TO LEFT AC WITH AMIODARONE AT 1 MG/MIN, SITE CLEAR. CENTRAL LINE TO RIGHT GROIN WITH EPI AT 15 MCQ/MIN AND NS AT TKO. SITE OOZING. EXT COLD. PT REPOSITONED AND ORAL CARE DONE. FAMILY AT BEDSIDE.
[2019-05-07 19:49] LABS: Hematocrit 33.3 % (33.0-51.0); Hemoglobin 9.2 g/dL (11.5-16.0); Mean Corpuscular HGB 26.4 pg (26.0-34.0); Mean Corpuscular HGB Conc 27.6 g/dL (31.5-36.5); Mean Corpuscular Volume 95 fL (80-100); Platelet Count 308 K/mm3 (150-400); RDW Coefficient Variation 15.4 % (11.7-14.2); RDW Standard Deviation 53.6 fL (35.1-46.3); Red Blood Cell Count 3.49 M/mm3 (3.80-5.20); White Blood Cell Count 23.05 K/mm3 (4.00-11.30)
[2019-05-07 20:05] LABS: PCO2 Arterial 68.1 mmHg (35-45); PO2 Arterial 74.9 mmHg (80-100); pH Blood Arterial 7.19 (7.35-7.45)
[2019-05-07 20:07] LABS: BAND PERCENT MAN 9 % (0-8); BASOPHILS PERCENT MAN 0 % (0-2); EOSINOPHILS PERCENT MAN 0 % (0-6); MONOCYTES ABSOLUTE MAN 0.46 K/mm3 (0.16-1.47); MONOCYTES PERCENT MAN 2 % (4-13); NEUTROPHILS ABSOLUTE MAN 22.58 K/mm3 (1.96-9.15); SEG NEUTROPHILS PERCENT MAN 89 % (41-73); TOTAL CELLS COUNTED 100
--- NOTE | 2019-05-07 20:45 | NUR ---
CT PT TAKEN TO CT WITH THIS RN AND RT. BACK TO ROOM WITHOUT ISSUES.
--- NOTE | 2019-05-07 20:50 | NUR ---
CALL TO MD CALL TO DR TELLES REGARDING CRITICAL LABS. LACTIC ACID 6.7, PH 7.19, GLUCOSE 714, AND TROPONIN 0.633. RECEIVED NEW ORDERS.
[2019-05-07 20:51] LABS: Albumin, Blood 2.1 g/dL (3.4-5.0); Albumin/Globulin Ratio 0.7 (0.8-1.8); Bilirubin, Total 0.3 mg/dL (0.1-1.0); Bun/Creatinine Ratio 22.7 (12.0-20.0); Creatinine, Blood 1.1 mg/dL (0.40-1.00); Potassium, Blood 3.2 mmol/L (3.5-5.5); Total Protein, Blood 5.1 g/dL (6.4-8.2)
--- NOTE | 2019-05-07 21:59 | NUR ---
HEPARIN GTT STARTED. PT GIVEN INSULIN 10 UNITS AND KCL STARTED
[2019-05-07 22:00] LABS: Glucose (ISTAT POC) >700 mg/dL (70-99)
[2019-05-07 22:13] LABS: PCO2 Arterial 66.4 mmHg (35-45); PO2 Arterial 74.7 mmHg (80-100)
[2019-05-07 22:46] LABS: Glucose, Blood 778 mg/dL (70-99)
--- NOTE | 2019-05-07 23:00 | NUR ---
CALL MD DR TELLES NOTIFIED REGARDING BLOOD GLUCOSE GREATER THANT 700, INSULIN GTT STARTED AT 4 UNITS/HR. ALSO, NOTIFIED REGARDING PH 7.20, LACTIC ACID 7.7, RECEIVED ORDERS. TITRATING EPI DOWN TO 10 MCQ/MIN.
--- NOTE | 2019-05-07 23:33 | NUR ---
REASSESSMENT PT CONT INTUBATED AND ON MECH VENT. NO VENT CHANGES. LUNGS CONT WITH EXP WHEEZES AND DECREASED. HEART RATE REGUALR. EPI GTT DOWN TO 10 MCQ/MIN TO KEEP MAP ABOVE 65. INSULIN GTT STARTED FOR BLOOD GLUCOSE OVER 700. ORAL CARE DONE AND PT REPOSITIONED. ANTIBIOTIC INFUSING
[2019-05-08 00:05] LABS: Glucose (ISTAT POC) >700 mg/dL (70-99)
[2019-05-08 00:25] LABS: Glucose, Blood 772 mg/dL (70-99)
--- NOTE | 2019-05-08 00:30 | NUR ---
BLOOD GLUCOSE 773, INSULIN INCREASED TO 6 UNITS/HR
--- NOTE | 2019-05-08 01:00 | NUR ---
CENTRAL LINE DRSG CHANGED AND BED BATH DONE. PT REPOSITIONED. PT CONT UNRESPONSIVE.
--- NOTE | 2019-05-08 01:15 | NUR ---
EPI DECREASED TO 4 MCQ/MIN
--- NOTE | 2019-05-08 01:21 | NUR ---
BLOOD GLUCOSE GREATER THAN 700, BLOOD SENT TO LAB. INSULIN INCREASED TO 10 UNITS/HR.
--- NOTE | 2019-05-08 01:56 | NUR ---
BLOOD GLUCOSE CRITICAL HIGH AT 729, INSULIN AT 10 UNITS/HR
--- NOTE | 2019-05-08 02:15 | NUR ---
EPI DECREASED TO 3 MCQ/MIN
[2019-05-08 02:21] LABS: Glucose (ISTAT POC) >700 mg/dL (70-99)
[2019-05-08 02:25] LABS: Glucose (ISTAT POC) 654 mg/dL (70-99)
--- NOTE | 2019-05-08 02:30 | NUR ---
EPI GTT INCREASED TO 4 MCQ/MIN DUE TO MAP BELOW 65
[2019-05-08 03:24] LABS: Glucose, Blood 729 mg/dL (70-99)
[2019-05-08 03:30] LABS: Glucose (ISTAT POC) 587 mg/dL (70-99)
[2019-05-08 03:37] LABS: BASOPHILS ABSOLUTE AUTO 0.03 K/mm3 (0.00-0.23); BASOPHILS PERCENT AUTO 0 % (0-2); Hematocrit 30.9 % (33.0-51.0); Hemoglobin 9.3 g/dL (11.5-16.0); LYMPHOCYTES ABSOLUTE AUTO 0.31 K/mm3 (0.84-5.20); LYMPHOCYTES PERCENT AUTO 1 % (21-46); MONOCYTES ABSOLUTE AUTO 0.44 K/mm3 (0.16-1.47); MONOCYTES PERCENT AUTO 2 % (4-13); Mean Corpuscular HGB 26.3 pg (26.0-34.0); Mean Corpuscular HGB Conc 30.1 g/dL (31.5-36.5); Platelet Count 283 K/mm3 (150-400); RDW Coefficient Variation 15.1 % (11.7-14.2); RDW Standard Deviation 48.2 fL (35.1-46.3); Red Blood Cell Count 3.53 M/mm3 (3.80-5.20); White Blood Cell Count 21.55 K/mm3 (4.00-11.30)
[2019-05-08 03:39] LABS: Base Excess Venous -2.3 mmol/L; Bicarbonate Venous 21.6 mmol/L (24.0-30.0); PCO2 Venous 75.3 mmHg (38-42); pH Blood Venous 7.16 (7.34-7.37)
[2019-05-08 03:40] LABS: EOSINOPHILS PERCENT AUTO 0 % (0-6); IMMATURE GRAN ABSOLUTE AUTO 0.19 K/mm3 (0.00-0.10); IMMATURE GRAN PERCENT AUTO 1 % (0-1); Mean Corpuscular Volume 88 fL (80-100); NEUTROPHILS ABSOLUTE AUTO 20.58 K/mm3 (1.96-9.15); NEUTROPHILS PERCENT AUTO 96 % (41-73)
[2019-05-08 03:56] LABS: Albumin, Blood 2.1 g/dL (3.4-5.0); Albumin/Globulin Ratio 0.7 (0.8-1.8); Bilirubin, Total 0.2 mg/dL (0.1-1.0); Bun/Creatinine Ratio 20.3 (12.0-20.0); Calcium, Blood 7.2 mg/dL (8.5-10.1); Creatinine, Blood 1.18 mg/dL (0.40-1.00); Globulin, Blood 3.1 g/dL (2.2-4.0); Phosphorus, Blood 1.3 mg/dL (2.5-4.9); Potassium, Blood 3.7 mmol/L (3.5-5.5); Total Protein, Blood 5.2 g/dL (6.4-8.2)
[2019-05-08 03:57] LABS: Magnesium, Blood 1.1 mg/dL (1.6-2.4)
[2019-05-08 04:12] LABS: PCO2 Arterial 61.7 mmHg (35-45); PO2 Arterial 72.5 mmHg (80-100); pH Blood Arterial 7.25 (7.35-7.45)
[2019-05-08 04:40] LABS: Glucose (ISTAT POC) 516 mg/dL (70-99)
--- NOTE | 2019-05-08 04:52 | NUR ---
CRITICAL LABS CRITICAL LABS CALLED TO DR TELLES, SEE NEW ORDERS. CRITICAL PTT CALLED TO PHARMACY, HEPARIN PLACED ON HOLD
[2019-05-08 05:50] LABS: Glucose (ISTAT POC) 480 mg/dL (70-99)
--- NOTE | 2019-05-08 06:04 | NUR ---
SHIFT SUMMARY PT CONT INTUBATED AND ON MECH VENT, NO VENT CHANGES DURING THE NIGHT. VENT SETTINGS AC 24 TV 350 PEEP 5 FIO2 45%. LUNGS SOUNDS DECREASED WITH EXP WHEEZES. SUCTIONING WHITE SECRECTIONS VIA ET TUBE. HEART RATE REGULAR. BP STABLE WITH EPI GTT AT 8 MCQ/MIN AND AMIODARONE AT 0.5 MG/MIN. EXT COOL AND DISCOLORED. BT+ HYPOACTIVE. HELTON CATH PATENT DRAINING CLEAR YELLOW URINE. FAMILY HOME FOR THE NIGHT. 2 GM MAG AND 30 MEQ KCL INFUSING. PT STARTED ON INSULIN GTT DURING THE NIGHT DUE TO BLOOD GLUCOSE IN THE 700'S. PT CONT NONRESPONSIVE TO PAINFUL STIMULI. REPORT TO ON COMING NURSE
--- NOTE | 2019-05-08 07:59 | NUR ---
EPINEPHRINE GTT IN 5% DEXROSE. TITRATING INSULIN DOWN WHEN I TITRATE EPI DOWN
--- NOTE | 2019-05-08 08:01 | NUR ---
PATIENT MAKING SUCKING MOTIONS ON ETT AND WHEN ORAL CARE PERFORMED. NO RESPONSE TO PAINFUL STIMULI. TEMP IS CLIMBING. WILL CONNECT COOLING ZOLL
--- NOTE | 2019-05-08 09:02 | NUR ---
MD VISIT DR. GTZ IN. NO NEW ORDERS
--- NOTE | 2019-05-08 09:03 | NUR ---
COOLING INTIATED OR FEVER
--- NOTE | 2019-05-08 09:44 | NUR ---
INSULIN AND EPINEPHRINE OFF
--- NOTE | 2019-05-08 10:45 | NUR ---
FAMILY AT BEDSIDE. EPINEPHRINE AND INSULIN OFF. ZOLL KEEPING TEMP 98-98.6
--- NOTE | 2019-05-08 12:38 | NUR ---
MD VISIT DR. TELLES IN
--- NOTE | 2019-05-08 15:02 | NUR ---
RUSSELL-INFANTE RESPIRATIONS. VENT ALARMS WHEN RR INCREASES TO 45 BPM. RT NOTIFIED. DAUGHTER ADVISED TO TAKE RINGS HOME HANDS ARE SWELLING. RING FINGERS WRAPPED IN COBAN IN AN ATTEMPT TO MOVE EDEMA IN KNUCKLES. FAMILY IS WAITING FOR PATIENT'S SON FROM [place] TO ARRIVE.
--- NOTE | 2019-05-08 15:13 | NUR ---
Pal Spiritual Care progress note: My with grand-daughter and her SO at bedside. They tell me family awaiting the arrival of pt's son who is traveling across country. Once he is here, family will re-evaluate POC according to g-dtr. Pt is not responsive, but appears well cared-for by excellent nursing. I will continue to attmept head counselor with pt's dtr, Jina, as she appears to be the one who is having the most difficulty accepting poor prognosis/decisions.
--- NOTE | 2019-05-08 16:20 | NUR ---
RINGS GIVEN TO DAUGHTER CHARLY
--- NOTE | 2019-05-08 19:30 | NUR ---
ASSUMED CARE PT INTUBATED, CURRENT VENT SETTINGS OF AC24/350/5/55%, NO SEDATION IN PLACE. PT HAS NO GAG OR SWALLOW REFLEX, NO MOVEMENT OF EXTREMITIES, NO CORNEAL OR BABINSKI REFLEX. PT IS MOVING TONGUE IN A SUCKING MOTION ON ETT. HEPARIN AT 12UNITS/HR, AMIODARONE AT 0.5MG/MIN AND NS TKO. MULTIPLE FAMILY MEMBERS IN ROOM AWAITING ARRIVAL OF BROTHER FROM [place] TO MAKE END OF LIFE DECISIONS. BP HYPERTENSIVE, ORDER FROM DR TELLES FOR NORVAS ONE TIME OBTAINED BY MARIELA SUERO, O2 SATS LOW 90'S BUT PT HAS POOR PERFUSION AND COOL CYANOTIC EXTREMITIES. ECG SHOWS SR/ST WITH BBB, RR 40-50 BUT NO SEDATION IN PLACE D/T NO NEURO RESPONS. OG CLAMPED, MINIMAL GASTRIC CONTENTS ASPIRATED. COOLING CATHETER TO RT GROIN TO MAINTAIN NORMOTHERMIA AND IS CURRENTLY 98.2.
--- NOTE | 2019-05-09 01:30 | NUR ---
PROPOFOL SUSTAINED RR >40. PROPOFOL RESTARTED AT 10MCG/KG/MIN. PT RR NOW IN THE 30'S AND PT LOOKS MORE COMFORTABLE. BP LABILE BUT WITH ADEQUATE MAP WITH PROPOFOL RESTART AND IS NOW AT 7MCG/KG/MIN. RESTART DISCUSSED W/ LAYLA GLEZ.
[2019-05-09 03:53] LABS: BASOPHILS ABSOLUTE AUTO 0.05 K/mm3 (0.00-0.23); BASOPHILS PERCENT AUTO 0 % (0-2); Hemoglobin 8.5 g/dL (11.5-16.0); LYMPHOCYTES ABSOLUTE AUTO 0.64 K/mm3 (0.84-5.20); LYMPHOCYTES PERCENT AUTO 3 % (21-46); MONOCYTES ABSOLUTE AUTO 0.86 K/mm3 (0.16-1.47); MONOCYTES PERCENT AUTO 4 % (4-13); Mean Corpuscular HGB 26.6 pg (26.0-34.0); Mean Corpuscular HGB Conc 31.5 g/dL (31.5-36.5); Mean Platelet Volume 9.6 fL (9.1-12.4); Platelet Count 196 K/mm3 (150-400); RDW Coefficient Variation 15.3 % (11.7-14.2); RDW Standard Deviation 46.9 fL (35.1-46.3); White Blood Cell Count 20.41 K/mm3 (4.00-11.30)
[2019-05-09 03:58] LABS: EOSINOPHILS PERCENT AUTO 0 % (0-6); IMMATURE GRAN ABSOLUTE AUTO 0.14 K/mm3 (0.00-0.10); IMMATURE GRAN PERCENT AUTO 1 % (0-1); Mean Corpuscular Volume 84 fL (80-100); NEUTROPHILS ABSOLUTE AUTO 18.72 K/mm3 (1.96-9.15); NEUTROPHILS PERCENT AUTO 92 % (41-73)
[2019-05-09 04:13] LABS: BAND PERCENT MAN 25 % (0-8); BASOPHILS PERCENT MAN 0 % (0-2); EOSINOPHILS PERCENT MAN 0 % (0-6); LYMPHOCYTES PERCENT MAN 2 % (21-46); METAMYELOCYTE PERCENT MAN 1 % (0-0); MONOCYTES PERCENT MAN 1 % (4-13); NEUTROPHILS ABSOLUTE MAN 19.59 K/mm3 (1.96-9.15); SEG NEUTROPHILS PERCENT MAN 71 % (41-73); TOTAL CELLS COUNTED 100
[2019-05-09 04:17] LABS: Albumin, Blood 1.9 g/dL (3.4-5.0); Albumin/Globulin Ratio 0.7 (0.8-1.8); Bilirubin, Total 0.7 mg/dL (0.1-1.0); Bun/Creatinine Ratio 26.1 (12.0-20.0); Calcium, Blood 7.1 mg/dL (8.5-10.1); Creatinine, Blood 1.11 mg/dL (0.40-1.00); Globulin, Blood 2.9 g/dL (2.2-4.0); Magnesium, Blood 1.3 mg/dL (1.6-2.4); Phosphorus, Blood 3.1 mg/dL (2.5-4.9); Potassium, Blood 4.9 mmol/L (3.5-5.5); Total Protein, Blood 4.8 g/dL (6.4-8.2); Troponin I 0.096 ng/mL (0.000-0.040)
--- NOTE | 2019-05-09 05:18 | NUR ---
DR JONI MOFFETT HERE, ORDERS OBTAINED FOR MAG REPLACEMENT. SEE EMAR.
--- NOTE | 2019-05-09 06:21 | NUR ---
SHIFT SUMMARY SEE PREVIOUS NOTES FOR SHIFT. NO CHANGE TO NEURO STATUS-NO GAG, COUGH, CORNEAL OR BABINSKI REFLEXES NOTED. THE ONLY MOVEMENT NOTED IS A SUCKING MOTION ON THE ETT AND MUSCLE FASICULATIONS TO RLE. VENT SETTINGS AT AC 24/350/5/80%. PROPOFOL STARTED AFTER MIDNIGHT D/T SUSTAINED RR ON VENT OF 40-50. RR NOW MID TO HIGH 30'S; PROPOFOL TITRATED BETWEEN 5-10MCG/KG/MIN DEPENDENT ON BP AND RR. BP STABLE, UOP OF 425/SHIFT. COOLING MEASURES CONTINUE AT 98.6 TO MAINTAIN NORMOTHERMIA. OG CLAMPED AND NO CONTENTS ASPIRATED ON ASSESSMENT. PT HAS HAD FREQUENT MOUTH CARE D/T DENTURE POSTS IN MOUTH CAUSING ORAL TRAUMA. HEPARIN AT 13 UNITS/KG/HR, AMIODARONE AT 0.5MG/HR, PROPOFOL AT 7MCG/KG/MIN AND NS TKO. FAMILY LEFT TO GO HOME LAST NIGHT AND ARE WAITING FOR ADDITIONAL FAMILY PRIOR TO WITHDRAWING CARE.
--- NOTE | 2019-05-09 08:30 | NUR ---
BEGINNING OF SHIFT Assumed care of pt at 0700 with Marni SUERO. Bedside report received from Sabi SUERO. Pt unresponsive. Propofol infusing at 7 mcg/kg/min. Decerebrate posturing noted during sternal rub. No response to nail bed pressure. Babinski reflex noted. No corneal reflex. Pupils 5 mm and sluggish response to light. Upward gaze. No gag noted with oral suctioning. Large amounts of clear secretions with brown chunks and blood tinging suctioned from mouth. No cough noted with ET suctioning. Subglottic suctioning also performed. Small amounts of yellow sputum suctioned from ET tube. RR 28-32. Sedation vacation provided. Pt demonstrated gag one time out of three attempts to stimulate. RR increased to 40-48. Propofol restarted. Pt on mechanical ventilation. 8.0 cm ET tube in place, 22 cm at the lip. Vent settings AC 24, vT 350, PEEP 5, 80% FiO2. Lungs clear, dim in the bases. Sinus rhythm per monitor with BBB, rate 95. Amiodarone infusing at 0.5 mg/min. Abdomen soft, nontender, nondistended. Hypoactive bowel tones. OG tube in place, clamped. Temp Jordan in place for strict measurment of fluid intake and output. Temp probe attached to cooling device. Pt receiving therapeutic cooling through central line in right femoral vein. Pt receiving cooling as she was previously febrile. Dressing C/D/I. Small amount of dried red drainage noted beneath tegaderm CHG. Fingers and toes cyanotic. Pt repositioned. Pt remains on heparin at 13 mg/kg/hr, infusing into peripheral IV. Lactic acid lab drawn from central line.
--- NOTE | 2019-05-09 08:36 | NUR ---
BEGINNING OF SHIFT Assumed care of pt at 0700 with Marni SUERO. Bedside report received from Sabi SUERO. Pt unresponsive. Propofol infusing at 7 mcg/kg/min. Decerebrate posturing noted during sternal rub. No response to nail bed pressure. Babinski reflex noted. No corneal reflex. No gag noted with oral suctioning. Large amounts of clear secretions with brown chunks and blood tinging suctioned from mouth. No cough noted with ET suctioning. Subglottic suctioning also performed. Small amounts of yellow sputum suctioned from ET tube. RR 28-32. Sedation vacation provided. Pt demonstrated gag one time out of three attempts to stimulate. RR increased to 40-48. Propofol restarted. Pt on mechanical ventilation. 8.0 cm ET tube in place, 22 cm at the lip. Vent settings AC 24, vT 350, PEEP 5, 80% FiO2. Lungs clear, dim in the bases. Sinus rhythm per monitor with BBB, rate 95. Amiodarone infusing at 0.5 mg/min. Abdomen soft, nontender, nondistended. Hypoactive bowel tones. OG tube in place, clamped. Temp Jordan in place for strict measurment of fluid intake and output. Temp probe attached to cooling device. Pt receiving therapeutic cooling through central line in right femoral vein. Pt receiving cooling as she was previously febrile. Dressing C/D/I. Small amount of dried red drainage noted beneath tegaderm CHG. Fingers and toes cyanotic. Pt repositioned. Pt remains on heparin at 13 mg/kg/hr, infusing into peripheral IV. Lactic acid lab drawn from central line.
--- NOTE | 2019-05-09 09:58 | NUR ---
FAMILY IN ROOM Pt's son and grandson in room. Update provided. Family states they do not have any questions at this time.
--- NOTE | 2019-05-09 11:03 | NUR ---
TREMORS Tremors present to bilateral thighs since start of shift. Tremors increased in severity, pt became more tachypnic, hypertensive. Ativan given per orders. Decrease in tremors noted. RR decreased to 25. BP normalized.
--- NOTE | 2019-05-09 11:32 | NUR ---
COOLING CATHETER Cooling placed on standby approx 30 mins ago. Temperature 98.4
--- NOTE | 2019-05-09 12:28 | NUR ---
FiO2 O2 sats 99%. FiO2 decreased to 75%. RT Scar, notified.
--- NOTE | 2019-05-09 13:26 | NUR ---
UPDATE Pt on 50% FiO2 at this time. Pt's temp 99.3. Cooling restarted as temperature has been continuously increasing since cessation.
--- NOTE | 2019-05-09 14:43 | NUR ---
COMFORT CARE This RN notified Dr Torres that all pt's family members were present in room. Provider met with family and educated about prognosis and comfort care. Afterwards, the pt's son and daughter approached nurses' station and stated they would like to make the patient comfort care. Alyson Montoya, met with family briefly. This RN notified Dr Torrse of family's wishes. Orders entered by provider. At this time, family is taking turns speaking to the patient privately- without other family or staff in room. Family stated they will notify nursing staff when they want the patient extubated.
--- NOTE | 2019-05-09 16:00 | NUR ---
EXTUBATION Pt extubated at 1520 by RT Abbott with this RN and Marni RN at bedside. Pt medicated with 2 mg ativan and 2 mg morphine. 4 mg morphine and 1 mg ativan administered shortly after intubation due to air hunger. Pt placed on 2 LPM NC for comfort. Scopalamine patch applied as pt is having copious amounts of brown secretions out of mouth. Family at bedside denies need at this time.
--- NOTE | 2019-05-09 17:51 | NUR ---
Pal Spiritual Care note: Large family presence in room. Facilitated family prayer for guidence and peace at bdside. Present when physician rounded. Son and dtr asked pt be made comfort care. Pt extubated. At this point, family is tearful, but appropriate. All report acceptance of process. Pt appears comfortable. No needs or concerns presented. Family appreciaitive of prayer and family and marriage counsellor. I will remain available.
--- NOTE | 2019-05-09 18:16 | NUR ---
SHIFT SUMMARY No acute changes since last note. Pt in bed, surrounded by family. [address] in [address]. Pt does not have as much oral secreations as previously noted. Respirations are shallow, tachypneic, however pt appears comfortable. Family agree pt looks comfortable.
--- NOTE | 2019-05-09 20:00 | NUR ---
ASSUMED CARE REPORT RECIEVED. PT IS LAYING IN BED RESTING QUIETLY. PT IS COMFORT CARE AT THIS TIME. PT UNRESPONSIVE TO NOXIOUS STIMULI. AIR HUNGER NOTED. PT MED PER EMAR. IV'S SALINE LOCKED. COOLING CATH LINE IN PLACE TO RIGHT FEMORAL C/D/I. HELTON IN PLACE WITH DARK YELLOW OUTPUT NOTED. MANY FAMILY MEMEBER PRESENT AT BEDSIDE. FAMILY INFORMED OF PLAN TO MOVE PT TO MEDICAL FLOOR WHEN BED IS AVAILABLE. WILL CONTINUE TO MONITOR.
--- NOTE | 2019-05-09 21:11 | NUR ---
FINAL DISCHARGE THIS RN WAS GATHERING PT BELONGINGS IN PREPARATION TO MOVE PT TO ROOM 334, PT NOTED TO HAVE SLOWING RESPIRATIONS. CONTINUED TO MONITOR PT. PT AT 2049. CONFIRMED BY ABSCENCE OF HEART SOUNDS AND LUNG SOUNDS AUSCULTATED. MULTIPLE FAMILY MEMEBERS PRESENT AT BEDSIDE. TAR WORKER AND NURSING MAGAZINE REPAIRER NOTIFIED. PEDRO LUIS PARSON NP NOTIFIED. PT FAMILY STATES THEY DO NOT HAVE A PREFERENCE OF HOME.
== END 2019-05-09 20:50 | DRG 208 ==
LOC: ER 11:47 → ICUW 12:46 → EDBD 12:46 → ICUW 12:46
PROVIDERS: Emergency Medicine; Internal Medicine Pulmonary Disease; ADMIT Internal Medicine
PROC: 0BH17EZ Insertion of Endotracheal Airway into Trachea, Via Natural or Artificial Opening (ICD-10-PCS; principal; 2019-05-07)
PROC: 5A1945Z Respiratory Ventilation, 24-96 Consecutive Hours (ICD-10-PCS; 2019-05-07)
PROC: 3E033XZ Introduction of Vasopressor into Peripheral Vein, Percutaneous Approach (ICD-10-PCS; 2019-05-07)
DX: J96.02 Acute respiratory failure with hypercapnia (principal); J15.1 Pneumonia due to Pseudomonas; J44.1 Chronic obstructive pulmonary disease with (acute) exacerbation; G93.1 Anoxic brain damage, not elsewhere classified; R57.9 Shock, unspecified; I46.9 Cardiac arrest, cause unspecified; F17.210 Nicotine dependence, cigarettes, uncomplicated; R73.9 Hyperglycemia, unspecified; Z51.5 Encounter for palliative care
CPT/HCPCS: 31500; 31720; 36415; 36556; 36600; 51702; 70450; 71045; 80048; 80053; 81001; 82803; 82947; 83605; 83690; 83735; 83880; 84100; 84484; 85025; 85730; 87040; 87070; 87077; 87186; 87205; 93005; 93010; 93308; 93321; 94002; 94003; 94640; 99291-25; 99292; C1751; C9113; J0171; J0282; J0461; J1644; J1815; J2060; J2270; J2704; J2920; J3010; J3370; J3475; J3480; J7030; J7040; J7060